=== PATIENT | male | born 1970 | race Caucasian/White ===

== ENCOUNTER 2016-11-22 15:30 | Observation (INO) | payer OTHER ==
--- NOTE | 2016-11-22 18:25 | PDOC ---
History of Present Illness - General Chief Complaint: Syncope/Near Syncope Stated Complaint: SYNCOPE History Source: Patient - History of Present Illness Initial Comments: 11/22/16 18:33 Patient is a 46 y.o. male with a PMH of Dieulafoy's lesion (s/p resection) and alcoholic hepatitis who presents to our facility today following a syncopal episode at the gym. Patient states his last memory is was pushing a football dummy with his personal fitness manager and he next recall being on the floor. Patient states his personal fitness manager broke his fall and patient denies any head trauma as well as any pre-syncopal diaphoresis, blurry vision, shortness of breath or chest pain prior to his syncopal episode. Past History - Past Medical History Allergies/Adverse Reactions: Allergies Allergy/AdvReac Type Severity Reaction Status Date / Time Penicillins Allergy Verified 11/22/16 15:41 Home Medications: Ambulatory Orders Nadolol [Corgard -] 20 mg PO DAILY #30 tablet 10/07/15 Pantoprazole Sodium [Protonix -] 40 mg PO DAILY #30 tablet.ec 10/07/15 Cardiac Disorders: Yes (AAA) Disorders: Yes (sludge) HTN: Yes - Immunization History Immunization Up to Date: Yes - Psycho/Social/Smoking Cessation Hx Anxiety: No Suicidal Ideation: No Smoking History: Never smoked Have you smoked in the past 12 months: No Number of Cigarettes Smoked Daily: 0 Cigars Per Day: 0 Information on smoking cessation initiated: No Hx Alcohol Use: No (past) Drug/Substance Use Hx: No (past) Substance Use Type: Alcohol *Physical Exam - Vital Signs Last Vital Signs Temp Pulse Resp BP Pulse Ox 98.1 F 76 20 98/55 98 11/22/16 15:43 11/22/16 15:43 11/22/16 15:43 11/22/16 15:43 11/22/16 15:43 ED Treatment Course - LABORATORY CBC & Chemistry Diagram: 11/22/16 18:00 11/22/16 18:00 Medical Decision Making - Medical Decision Making 11/22/16 18:37 Initial differential diagnosis includes isolated syncopal episode 2/2 to dehydration vs. arrhythmia with neurogenic causes less likely. EKG, CBC, BMP pending at time of signout to Dr. Henry.
[2016-11-22 18:52] LABS: MCH 21.5 pg (25.7-33.7); MCHC 31.4 g/dl (32.0-35.9); MEAN CELL VOLUME 68.5 fl (80-96); MEAN PLT VOLUME 9.1 fl (7.5-11.1); PLATELET COUNT 86 K/MM3 (134-434); RDW 18.3 % (11.9-15.9)
[2016-11-22 19:28] LABS: ANION GAP 9 (8-16); CALCIUM 8.7 mg/dL (8.5-10.1); CO2 24 mmol/L (21-32); CREATININE 0.7 mg/dL (0.7-1.3); GLUCOSE,RANDOM 108 mg/dL (74-106)
--- NOTE | 2016-11-22 19:35 | PDOC ---
History of Present Illness - General Chief Complaint: Syncope/Near Syncope Stated Complaint: SYNCOPY Time Seen by Provider: 11/22/16 18:26 Past History - Past Medical History Allergies/Adverse Reactions: Allergies Allergy/AdvReac Type Severity Reaction Status Date / Time Penicillins Allergy Verified 11/22/16 15:41 Home Medications: Ambulatory Orders Nadolol [Corgard -] 20 mg PO DAILY #30 tablet 10/07/15 Pantoprazole Sodium [Protonix -] 40 mg PO DAILY #30 tablet.ec 10/07/15 Cardiac Disorders: Yes (AAA) Disorders: Yes (sludge) HTN: Yes - Immunization History Immunization Up to Date: Yes - Psycho/Social/Smoking Cessation Hx Anxiety: No Suicidal Ideation: No Smoking History: Never smoked Have you smoked in the past 12 months: No Number of Cigarettes Smoked Daily: 0 Cigars Per Day: 0 Information on smoking cessation initiated: No Hx Alcohol Use: No (past) Drug/Substance Use Hx: No (past) Substance Use Type: Alcohol *Physical Exam - Vital Signs Last Vital Signs Temp Pulse Resp BP Pulse Ox 98.1 F 76 20 98/55 98 11/22/16 15:43 11/22/16 15:43 11/22/16 15:43 11/22/16 15:43 11/22/16 15:43 ED Treatment Course - LABORATORY CBC & Chemistry Diagram: 11/22/16 18:00 11/22/16 18:00 - ADDITIONAL ORDERS Additional order review: Laboratory Results 11/22/16 18:00 Sodium 139 Potassium 4.0 Chloride 106 Carbon Dioxide 24 Anion Gap 9 BUN 15 D Creatinine 0.7 Random Glucose 108 H D Calcium 8.7 11/22/16 18:00 RBC 4.36 D MCV 68.5 L MCHC 31.4 L RDW 18.3 H D MPV 9.1
--- NOTE | 2016-11-22 20:29 | PDOC ---
History of Present Illness - General Chief Complaint: Syncope/Near Syncope Stated Complaint: SYNCOPY Time Seen by Provider: 11/22/16 18:26 - History of Present Illness Initial Comments: Patient is a 46 y.o. male with a PMH of Dieulafoy's lesion (s/p resection) and alcoholic hepatitis who presents to our facility today following a syncopal episode at the gym. Patient states that he had a rigorous workout with his aed trainer during which he was pushing a tactical dummy long distances. He was able to complete his workout then began stratching on the floor during wic his traners was folding his legs and knees to his head while ht epatient was supine. The patien quickly got up off hte floor and immediately syncopized for approximately 5-10 seconds then awoke. Patient states his personal shopper broke his fall and patient denies any head trauma as well as any pre-syncopal diaphoresis, blurry vision, shortness of breath or chest pain prior to his syncopal episode. He had no head trauma, tongue or mouth trauma, bowel incontinence, bladder incontinence, or post ictal period. He has history of abdominal aortic aneurism per his chart but this is inaccurate per the patient and recent MRI read. He is followed by Dr. Staples for his liver pathology and sequelae, having just received an abdominal MRI last week that he states was fine. 11/22/16 20:29 Past History - Past Medical History Allergies/Adverse Reactions: Allergies Allergy/AdvReac Type Severity Reaction Status Date / Time Penicillins Allergy Verified 11/22/16 15:41 Home Medications: Ambulatory Orders Nadolol [Corgard -] 20 mg PO DAILY #30 tablet 10/07/15 Pantoprazole Sodium [Protonix -] 40 mg PO DAILY #30 tablet.ec 10/07/15 Cardiac Disorders: Yes (AAA) Disorders: Yes (sludge) HTN: Yes - Immunization History Immunization Up to Date: Yes - Psycho/Social/Smoking Cessation Hx Anxiety: No Suicidal Ideation: No Smoking History: Never smoked Have you smoked in the past 12 months: No Number of Cigarettes Smoked Daily: 0 Cigars Per Day: 0 Information on smoking cessation initiated: No Hx Alcohol Use: No (past) Drug/Substance Use Hx: No (past) Substance Use Type: Alcohol *Physical Exam - Vital Signs Last Vital Signs Temp Pulse Resp BP Pulse Ox 98.1 F 76 20 98/55 98 11/22/16 15:43 11/22/16 15:43 11/22/16 15:43 11/22/16 15:43 11/22/16 15:43 - Physical Exam General Appearance: Yes: Appropriately Dressed. No: Apparent Distress HEENT: positive: EOMI, JOSE F, Normal Voice Neck: positive: Trachea midline, Normal Thyroid. negative: Tender Respiratory/Chest: positive: Lungs Clear, Normal Breath Sounds. negative: Chest Tender, Respiratory Distress, Accessory Muscle Use Cardiovascular: positive: Regular Rhythm, Regular Rate, S1, S2, Edema (trace bilateral le edema). negative: JVD, Murmur Gastrointestinal/Abdominal: positive: Normal Bowel Sounds, Flat, Distended ( sligtly distended per his baseline). negative: Tender Musculoskeletal: positive: Normal Inspection Neurologic: positive: physical medicine physician II-XII NML intact, Fully Oriented, Alert, Normal Mood/ Affect, Motor Strength 08/09 ED Treatment Course - LABORATORY CBC & Chemistry Diagram: 11/22/16 18:00 11/22/16 18:00 - ADDITIONAL ORDERS Additional order review: Laboratory Results 11/22/16 18:00 Sodium 139 Potassium 4.0 Chloride 106 Carbon Dioxide 24 Anion Gap 9 BUN 15 D Creatinine 0.7 Random Glucose 108 H D Calcium 8.7 11/22/16 18:00 RBC 4.36 D MCV 68.5 L MCHC 31.4 L RDW 18.3 H D MPV 9.1 Medical Decision Making - Medical Decision Making 46 year old male with recent syncopal episode after supine stretching and standing all after a heavy workout. NO post ictal phase or head trauma to suggest high mechanism injury or seizure. This was most likely orthostatic hypotension but with history of AVMs, further workup was warranted. CBC significant for anemia (9.4)but this is per his baseline (mid 9s to mid 8s) and thrombocytopenia (86) but patient usually runs in 80s to low 100s. is KEG had a potential RSrR in V1 with some possibly depressed t waves n V3 but these were all apparent in his EKG on 09/2015. Furthermore, an echo on 09/2015 demonstrated no valvular abnormalities along with an EF of 60%. 11/22/16 21:12 11/22/16 23:[address] negative and patient feeling well. Spoke with Dr. Moncada @ 23:00 who suggested carotid Dopplers and further workup if suspicious. Will admit the patient for obs and further cardiac workup. 11/23/16 00:01 Spoke to medicine, put in carotid dopplers and admitted patient for further workup. Admitted under Dr. Landry. 11/23/16 00:04 *DC/Admit/Observation/Transfer Diagnosis at time of Disposition: Syncope - Discharge Dispostion Condition at time of disposition: Improved Admit: Yes - Referrals Referrals: Isa Raphael MD [Primary Care Provider] - - Attestations Physician Attestion: 11/23/16 00:05 I, Dr. Stephanie Henry, attest that this document has been prepared under my direction and personally reviewed by me in its entirety. I further attest, that it accurately reflects all work, treatment, procedures and medical decision -making performed by me.
[2016-11-22 20:38] LABS: ALBUMIN 3.4 g/dl (3.4-5.0); BILIRUBIN,DIRECT 0.5 mg/dL (0.0-0.2); BILIRUBIN,TOTAL 2.5 mg/dL (0.2-1.0); TOT PROT 6.8 g/dl (6.4-8.2)
[2016-11-22 20:39] LABS: TROPONIN I 0.02 ng/ml (0.00-0.05)
[2016-11-22 20:58] LABS: URINE APPEARANCE CLEAR; URINE BILIRUBIN NEGATIVE (NEGATIVE); URINE BLOOD NEGATIVE (NEGATIVE); URINE COLOR LTYELLOW; URINE GLUCOSE (UA) NEGATIVE (NEGATIVE); URINE KETONE NEGATIVE (NEGATIVE); URINE LEUK ESTERASE NEGATIVE (NEGATIVE); URINE NITRITE NEGATIVE (NEGATIVE); URINE UROBILINOGEN NEGATIVE mg/dL (0.2-1.0)
[2016-11-22 20:59] LABS: URINE PROTEIN 1+ (NEGATIVE)
[2016-11-22 22:22] LABS: GRANULAR CASTS 1 /lpf; URINE MUCUS RARE; URINE RBC <1 /hpf (0-3); URINE WBC <1 /hpf (3-5)
[2016-11-22 22:43] LABS: PLATELET ESTIMATE MOD DECREASED (NORMAL)
[2016-11-22 22:44] LABS: HYPOCHROMIA 2+; MICROCYTOSIS 1+
--- NOTE | 2016-11-22 23:55 | PDOC ---
Attending Attestation - Resident Resident Name: Stephanie Henry - HPI HPI: 11/22/16 23:52 Pt had a syncopal episode in the gym during a workout. Witnessed by his applications trainer. Pt has never passed out before. Hx of alcoholism. - Physicial Exam PE: 11/22/16 23:55 Agree with resident exam - Medical Decision Making 11/22/16 23:55 Admit telemetry observation
[2016-11-23 02:25] VITALS: BMI 35.4
--- NOTE | 2016-11-23 04:14 | HP ---
CHIEF COMPLAINT: passed out at gym PCP:Isa Raphael MD HISTORY OF PRESENT ILLNESS: 46 yo male with a PMHx of GI bleed and alcoholic hepatitis who presented to ED following a syncopal episode at the gym. He states that today he was working out with his horse trainer and after a rigerous excercise of pushing an sled he felt light headed and proceeded to sit on a mat while his horse trainer stretching his legs and bending his knees. He then proceeded to stand up and next thing he remembers is waking up on floor. He was not confused. No loss of bowel or bladder function. He does recall some feeling of light headedness and palpitations just prior to waking up on floor. His horse trainer was able to stop him from hitting his head. Patient denies CP, CARRENO, SOB, abd. pain, N/V. ER course was notable for: (1)EKG showed NSR no significant st or t wave abnormalities (2)Head CT was negative for acute pathology (3)Carotid doppler showed no significant stenosis Recent Travel: Denies PAST MEDICAL HISTORY:GI bleed and alcoholic hepatitis PAST SURGICAL HISTORY: Social History: Smoking:denies Alcohol:history of abuse. last drink over a year ago Drugs: denies Family History: Allergies Penicillins Allergy (Verified 11/22/16 15:41) HOME MEDICATIONS: Home Medications Medication Instructions Recorded Nadolol [Corgard -] 20 mg PO DAILY #30 tablet 10/07/15 Pantoprazole Sodium [Protonix -] 40 mg PO DAILY #30 tablet.ec 10/07/15 Escitalopram Oxalate [Lexapro -] 10 mg PO DAILY 11/23/16 REVIEW OF SYSTEMS CONSTITUTIONAL: Absent: fever, chills, diaphoresis, generalized weakness, malaise, loss of appetite, weight change HEENT: Absent: rhinorrhea, nasal congestion, throat pain, throat swelling, difficulty swallowing, mouth swelling, ear pain, eye pain, visual changes CARDIOVASCULAR: syncope, palpitations Absent: chest pain, , irregular heart rate, lightheadedness, peripheral edema RESPIRATORY: Absent: cough, shortness of breath, dyspnea with exertion, orthopnea, wheezing, stridor, hemoptysis GASTROINTESTINAL: Absent: abdominal pain, abdominal distension, nausea, vomiting, diarrhea, constipation, melena, hematochezia GENITOURINARY: Absent: dysuria, frequency, urgency, hesitancy, hematuria, flank pain, genital pain MUSCULOSKELETAL: Absent: myalgia, arthralgia, joint swelling, back pain, neck pain SKIN: Absent: rash, itching, pallor HEMATOLOGIC/IMMUNOLOGIC: Absent: easy bleeding, easy bruising, lymphadenopathy, frequent infections ENDOCRINE: Absent: unexplained weight gain, unexplained weight loss, heat intolerance, cold intolerance NEUROLOGIC: Absent: headache, focal weakness or paresthesias, dizziness, unsteady gait, seizure, mental status changes, bladder or bowel incontinence PSYCHIATRIC: Absent: anxiety, depression, suicidal or homicidal ideation, hallucinations. PHYSICAL EXAMINATION Vital Signs - 24 hr 11/23/16 11/23/16 01:08 01:30 Temperature 98.0 F 97.6 F Pulse Rate 55 L Pulse Rate [ 68 Left Radial] Respiratory 19 20 Rate Blood Pressure 122/62 Blood Pressure 110/70 [Left Arm] O2 Sat by Pulse 98 99 Oximetry (%) GENERAL: AAAOx3, NAD HEAD: NC/AT EYES: PERRLA, EOMI, sclera anicteric, conjunctiva clear. No lid lag. EARS, NOSE, THROAT: Moist mucous membranes. NECK: supple, no jvd LUNGS: CTAB. No wheezes, and no crackles. No accessory muscle use. HEART: RRR, normal S1 and S2 without murmur, rub or gallop. ABDOMEN: Soft, NT/ND, normoactive bowel sounds, no guarding, no rebound, no masses. No hepatomegaly or splenomegaly. MUSCULOSKELETAL: Normal range of motion at all joints. No bony deformities or tenderness. No CVA tenderness. UPPER EXTREMITIES: 2+ pulses, warm, well-perfused. No cyanosis. No clubbing. No peripheral edema. LOWER EXTREMITIES: 2+ pulses, warm, well-perfused. No calf tenderness. trace edema bilaterally NEUROLOGICAL: Cranial nerves II-XII intact. Normal speech. gait not observed. PSYCHIATRIC: Cooperative. Good eye contact. Appropriate mood and affect. SKIN: Warm, dry, normal turgor, no rashes or lesions noted, normal capillary refill. Laboratory Results - last 24 hr 11/23/16 02:30 Troponin I 0.03 D ASSESSMENT/PLAN: 46 yo male with a PMHx of GI bleed and alcoholic hepatitis placed on observation to telemetry for syncope work up. Problem List - Problem (1) Syncope Assessment/Plan: * Placed on obs tele * Most likely orthostatic * Cardio consult pending * Carotid doppler with no signifcant stenosis * EKG NSR * Echo pending. * trend trops * orthostatic BP's (2) Alcoholic hepatitis Assessment/Plan: * Continue home meds * Nadolol 20 mg PO DAILY * Pantoprazole Sodium 40 mg PO DAILY Visit type - Emergency Visit Emergency Visit: Yes ED Registration Date: 11/23/16 Care time: The patient presented to the Emergency Department on the above date and was hospitalized for further evaluation of their emergent condition. - New Patient This patient is new to me today: Yes Date on this admission: 11/23/16 - Critical Care Critical Care patient: No
--- NOTE | 2016-11-23 06:08 | PN ---
Teaching Attending Note Name of Resident: Solomon Sheppard ATTENDING PHYSICIAN STATEMENT I saw and evaluated the patient. I reviewed the resident's note and discussed the case with the resident. I agree with the resident's findings and plan as documented. SUBJECTIVE: 46 yo male admitted after apparent syncopal episode during his workout today. OBJECTIVE: - Vital Sign Temp: 97.6F BP: 122/62 HR: 50s RR: 20 spO2: 99% on RA - Physical Examination General: Alert, NAD HEENT: Atraumatic, no oral lesions Neck: No jvd CV: Sinus bradycardia, S1 and S2 Pulm: CTA anteriorly Ext: Nonedematous Lymph: No cervical or supraclavicular lymphadenopathy - Imaging CT Brain and Carotid U/S reviewed Echo 09/2015 reviewed ( wnl ) - Labs CMP unremarkable aside from Bili 2.5 ( Direct 0.5 ) Pancytopenia c/w baseline Troponin negative x 2 UA 1+ protein ASSESSMENT Syncope - history suggestive of orthostatic etiology, however, unclear if associated with exertion EtOH Cirrhosis Chronic Pancytopenia Mild Hyperbilirubinemia Asymptomatic Bradycardia PLAN: Admit for cardiac telemetry and exercise stress test in AM. Hold outpatient BB F/U Echocardiogram and exercise stress results ; F/U Cardiology recs Thiamine, Folate, MVI DISPOSITION: Anticipate discharge in 24-48h pending results of above investigations and Cardiology recommendations.
--- NOTE | 2016-11-23 08:02 | CONSULT ---
Consult - text type - Consultation Consultation Note: Cardiology 46 y.o. male with a PMH of Dieulafoy's lesion (s/p resection) and alcoholic hepatitis who presents to our facility today following a syncopal episode at the gym. No pre or post symptoms. Denies any cardiac symptoms, with reasonable exercise capacity. social: ex ETOH allergey: NKDA FH NA Op: PMH: etoh cirrhosis, liver transplant evaluation PE: vitals stable normal cardio-pulmonary exam abdomen soft no leg edema Impression: stable from cardiac standpoint EKG and troponins unremarkable telemetry normal most likely post-exertional syncope, without cardiac etology Rec: Discharge Follow-up my office; patient agreeable
[2016-11-23 08:32] LABS: MAGNESIUM 1.8 mg/dL (1.8-2.4); PHOSPHOROUS 3.9 mg/dL (2.5-4.9)
[2016-11-23] MEDS ORDERED: NADOLOL 20 MG TABLET (FP) PO SCH (10:00)
[2016-11-23] MEDS ORDERED: ESCITALOPRAM OXALATE 10 MG TABLET (FP) PO SCH (10:00)
[2016-11-23] MEDS ORDERED: PANTOPRAZOLE 40 MG TABLET (FP) PO SCH (10:00)
[2016-11-23 10:07] VITALS: BP 117/68; PULSE 65; TEMP 97.9
--- NOTE | 2016-11-23 12:39 | PN ---
Physical Exam: SUBJECTIVE: Patient seen and examined OBJECTIVE: Vital Signs Temperature 97.9 F 11/23/16 10:00 Pulse Rate 65 11/23/16 10:00 Respiratory Rate 20 11/23/16 10:08 Blood Pressure 117/68 11/23/16 10:00 O2 Sat by Pulse Oximetry (%) 99 11/23/16 10:08 GENERAL: The patient is awake, alert, and fully oriented, in no acute distress. HEAD: Normal with no signs of trauma. EYES: PERRL, extraocular movements intact, sclera anicteric, conjunctiva clear. No ptosis. ENT: Ears normal, nares patent, oropharynx clear without exudates, moist mucous membranes. NECK: Trachea midline, full range of motion, supple. LUNGS: Breath sounds equal, clear to auscultation bilaterally, no wheezes, no crackles, no aqccessory muscle use. HEART: Regular rate and rhythm, S1, S2 without murmur, rub or gallop. ABDOMEN: Soft, nontender, nondistended, normoactive bowel sounds, no rebound, no hepatosplenomegaly, no masses. EXTREMITIES: 2+ pulses, warm, well-perfused, no edema. NEUROLOGICAL: Cranial nerves II through XII grossly intact. Normal speech, gait not observed. PSYCH: Normal mood, normal affect. SKIN: Warm, dry, normal turgor, no rashes or lesions noted Laboratory Results - last 24 hr 11/23/16 11/23/16 02:30 06:05 Phosphorus 3.9 Magnesium 1.8 Troponin I 0.03 D CBCD WBC 3.0 K/mm3 (4.0-10.0) L D 11/22/16 18:00 RBC 4.36 M/mm3 (4.00-5.60) D 11/22/16 18:00 Hgb 9.4 GM/dL (11.7-16.9) L 11/22/16 18:00 Hct 29.8 % (35.4-49) L 11/22/16 18:00 MCV 68.5 fl (80-96) L 11/22/16 18:00 MCHC 31.4 g/dl (32.0-35.9) L 11/22/16 18:00 RDW 18.3 % (11.9-15.9) H D 11/22/16 18:00 Plt Count 86 K/MM3 (134-434) L D 11/22/16 18:00 MPV 9.1 fl (7.5-11.1) 11/22/16 18:00 CMP Sodium 139 mmol/L (136-145) 11/22/16 18:00 Potassium 4.0 mmol/L (3.5-5.1) 11/22/16 18:00 Chloride 106 mmol/L (98-107) 11/22/16 18:00 Carbon Dioxide 24 mmol/L (21-32) 11/22/16 18:00 Anion Gap 9 (8-16) 11/22/16 18:00 BUN 15 mg/dL (7-18) D 11/22/16 18:00 Creatinine 0.7 mg/dL (0.7-1.3) 11/22/16 18:00 Random Glucose 108 mg/dL (74-106) H D 11/22/16 18:00 Calcium 8.7 mg/dL (8.5-10.1) 11/22/16 18:00 Total Bilirubin 2.5 mg/dL (0.2-1.0) H D 11/22/16 18:00 AST 32 U/L (15-37) D 11/22/16 18:00 ALT 22 U/L (12-78) 11/22/16 18:00 Alkaline Phosphatase 82 U/L (45-117) D 11/22/16 18:00 Total Protein 6.8 g/dl (6.4-8.2) 11/22/16 18:00 Albumin 3.4 g/dl (3.4-5.0) 11/22/16 18:00 CARDIAC ENZYMES Creatine Kinase 130 IU/L (39-308) 11/22/16 18:00 Troponin I 0.03 ng/ml (0.00-0.05) D 11/23/16 02:30 Active Medications Generic Name Dose Route Start Last Admin Trade Name Rnee PRN Reason Stop Dose Admin Escitalopram Oxalate 10 mg 11/23/16 10:00 11/23/16 09:23 Lexapro - PO 10 mg DAILY ELICEO Administration Nadolol 20 mg 11/23/16 10:00 11/23/16 09:23 Corgard - PO 20 mg DAILY ELICEO Administration Pantoprazole Sodium 40 mg 11/23/16 10:00 11/23/16 09:23 Protonix - PO 40 mg DAILY ELICEO Administration Home Medications Medication Instructions Recorded Nadolol [Corgard -] 20 mg PO DAILY #30 tablet 10/07/15 Pantoprazole Sodium [Protonix -] 40 mg PO DAILY #30 tablet.ec 10/07/15 Escitalopram Oxalate [Lexapro -] 10 mg PO DAILY 11/23/16 Carotid duplex: No significant stenosis reported Head Ct: negative ASSESSMENT/PLAN: Syncope - history suggestive of orthostatic etiology, however, unclear if associated with exertion EtOH Cirrhosis Chronic Pancytopenia Mild Hyperbilirubinemia Asymptomatic Bradycardia PLAN: Admit for cardiac telemetry and exercise stress test in AM. Hold outpatient BB F/U Echocardiogram and exercise stress results ; F/U Cardiology recs Thiamine, Folate, MVI
--- NOTE | 2016-11-23 13:11 | CON.NEURO ---
Consult - History of Present Illness History of Present Illness: 46 yo male with a PMHx of GI bleed and alcoholic hepatitis who presented to ED following a syncopal episode at the gym. He states that today he was working out with his small engine trainer and after a rigerous excercise of pushing an sled he felt light headed and proceeded to sit on a mat while his small engine trainer stretching his legs and bending his knees. He then proceeded to stand up and next thing he remembers is waking up on floor. He was not confused. No loss of bowel or bladder function. He does recall some feeling of light headedness and palpitations just prior to waking up on floor. His small engine trainer was able to stop him from hitting his head. Patient denies CP, CARRENO, SOB, abd. pain, N/V. no HX of seizure, stroke, no prior events.Last ETOH > one yr ago. back to baseline. CTHD (-), dopplers (-) - Alcohol/Substance Use Hx Alcohol Use: No (past) - Smoking History Smoking history: Never smoked Have you smoked in the past 12 months: No Aproximately how many cigarettes per day: 0 Home Medications - Allergies Allergies/Adverse Reactions: Allergies Allergy/AdvReac Type Severity Reaction Status Date / Time Penicillins Allergy Verified 11/22/16 15:41 - Home Medications Home Medications: Ambulatory Orders Nadolol [Corgard -] 20 mg PO DAILY #30 tablet 10/07/15 Pantoprazole Sodium [Protonix -] 40 mg PO DAILY #30 tablet.ec 10/07/15 Escitalopram Oxalate [Lexapro -] 10 mg PO DAILY 11/23/16 Physical Exam-Neuro Vital Signs: Vital Signs Temperature 97.9 F 11/23/16 10:00 Pulse Rate 65 11/23/16 10:00 Respiratory Rate 20 11/23/16 10:08 Blood Pressure 117/68 11/23/16 10:00 O2 Sat by Pulse Oximetry (%) 99 11/23/16 10:08 Constitutional: Yes: Well Nourished, No Distress Neck: Yes: WNL Labs: Troponin, BNP 11/22/16 11/23/16 18:00 02:30 Troponin I 0.02 D 0.03 D 11/22/16 18:00 11/22/16 18:00 - Neuro Exam Level Of Consciousness: Yes: Alert, Oriented to Person (EOMI, pupils symmetric, no facial, motor 5/5, plantars down) Imaging - Results Cat Scan: Report Reviewed, Image Reviewed Problem List - Problems (1) Alcoholic hepatitis Code(s): K70.10 - ALCOHOLIC HEPATITIS WITHOUT ASCITES Qualifiers: Ascites presence: with ascites Qualified Code(s): K70.11 - Alcoholic hepatitis with ascites (2) Syncope Code(s): R55 - SYNCOPE AND COLLAPSE Qualifiers: Syncope type: unspecified Qualified Code(s): R55 - Syncope and collapse Assessment/Plan Syncope post excersise, ? compunded by dehydration , anemia no signs of seizure or stroke neuro cleared for Dc Dr Moncada
--- NOTE | 2016-11-23 14:00 | DS ---
Physical Exam: SUBJECTIVE: Patient seen and examined Patient is feeling better. no fever or chills, no shortness of breath. OBJECTIVE: Vital Signs Temperature 97.9 F 11/23/16 10:00 Pulse Rate 65 11/23/16 10:00 Respiratory Rate 20 11/23/16 10:08 Blood Pressure 117/68 11/23/16 10:00 O2 Sat by Pulse Oximetry (%) 99 11/23/16 10:08 GENERAL: The patient is awake, alert, and fully oriented, in no acute distress. HEAD: Normal with no signs of trauma. EYES: PERRL, extraocular movements intact, sclera anicteric, conjunctiva clear. ENT: Ears normal, oropharynx clear without exudates, moist mucous membranes. NECK: Trachea midline, full range of motion, supple. LUNGS: Breath sounds equal, clear to auscultation bilaterally, no wheezes, no crackles, no accessory muscle use. HEART: Regular rate and rhythm, S1, S2 without murmur, rub or gallop. ABDOMEN: Soft, nontender, nondistended, normoactive bowel sounds, no guarding, no rebound. EXTREMITIES: 2+ pulses, warm, well-perfused, no edema. NEUROLOGICAL: Cranial nerves II through XII grossly intact. Normal speech, gait not observed. PSYCH: Normal mood, normal affect. SKIN: Warm, dry, normal turgor, no rashes or lesions noted. LABS Laboratory Results - last 24 hr 11/23/16 11/23/16 02:30 06:05 Phosphorus 3.9 Magnesium 1.8 Troponin I 0.03 D CBCD WBC 3.0 K/mm3 (4.0-10.0) L D 11/22/16 18:00 RBC 4.36 M/mm3 (4.00-5.60) D 11/22/16 18:00 Hgb 9.4 GM/dL (11.7-16.9) L 11/22/16 18:00 Hct 29.8 % (35.4-49) L 11/22/16 18:00 MCV 68.5 fl (80-96) L 11/22/16 18:00 MCHC 31.4 g/dl (32.0-35.9) L 11/22/16 18:00 RDW 18.3 % (11.9-15.9) H D 11/22/16 18:00 Plt Count 86 K/MM3 (134-434) L D 11/22/16 18:00 MPV 9.1 fl (7.5-11.1) 11/22/16 18:00 CMP Sodium 139 mmol/L (136-145) 11/22/16 18:00 Potassium 4.0 mmol/L (3.5-5.1) 11/22/16 18:00 Chloride 106 mmol/L (98-107) 11/22/16 18:00 Carbon Dioxide 24 mmol/L (21-32) 11/22/16 18:00 Anion Gap 9 (8-16) 11/22/16 18:00 BUN 15 mg/dL (7-18) D 11/22/16 18:00 Creatinine 0.7 mg/dL (0.7-1.3) 11/22/16 18:00 Random Glucose 108 mg/dL (74-106) H D 11/22/16 18:00 Calcium 8.7 mg/dL (8.5-10.1) 11/22/16 18:00 Total Bilirubin 2.5 mg/dL (0.2-1.0) H D 11/22/16 18:00 AST 32 U/L (15-37) D 11/22/16 18:00 ALT 22 U/L (12-78) 11/22/16 18:00 Alkaline Phosphatase 82 U/L (45-117) D 11/22/16 18:00 Total Protein 6.8 g/dl (6.4-8.2) 11/22/16 18:00 Albumin 3.4 g/dl (3.4-5.0) 11/22/16 18:00 CARDIAC ENZYMES Creatine Kinase 130 IU/L (39-308) 11/22/16 18:00 Troponin I 0.03 ng/ml (0.00-0.05) D 11/23/16 02:30 Current Medications Generic Name Dose Route Start Last Admin Trade Name Freq PRN Reason Stop Dose Admin Escitalopram Oxalate 10 mg 11/23/16 10:00 11/23/16 09:23 Lexapro - PO 10 mg DAILY ELICEO Administration Nadolol 20 mg 11/23/16 10:00 11/23/16 09:23 Corgard - PO 20 mg DAILY ELICEO Administration Pantoprazole Sodium 40 mg 11/23/16 10:00 11/23/16 09:23 Protonix - PO 40 mg DAILY ELICEO Administration Home Medications Medication Instructions Recorded Nadolol [Corgard -] 20 mg PO DAILY #30 tablet 10/07/15 Pantoprazole Sodium [Protonix -] 40 mg PO DAILY #30 tablet.ec 10/07/15 Escitalopram Oxalate [Lexapro -] 10 mg PO DAILY 11/23/16 Carotid duplex: No significant stenosis reported Head Ct: negative HOSPITAL COURSE: Date of Admission:11/23/16 Date of Discharge: 11/23/16 ASSESSMENT/PLAN: Patient is a 46yo male presented to ED. post syncope. # Syncope - history suggestive of orthostatic etiology, however, unclear if associated with exertion, as per neuro patient is clear for discharge, as per cardio can have stress test and further work up by 's office, who also cleared him for discharge. Patient stated that he was told that his pulse was low, doesn't recall how low. Also TSH,FT4 w/u as an outpatient, stress test, echo as an outpatient. # EtOH Cirrhosis patient stopped drinking, he is on the transplant list at this and will follow with [facility]. 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 #Mild Hyperbilirubinemia follow with GI 40 minutes Minutes to complete discharge: 40 Discharge Summary Reason For Visit: SYNCOPE Current Active Problems Alcoholic hepatitis (Acute) Syncope (Acute) Condition: Improved - Instructions Referrals: Isa Raphael MD [Primary Care Provider] - - Home Medications Comprehensive Discharge Medication List: Ambulatory Orders Nadolol [Corgard -] 20 mg PO DAILY #30 tablet 10/07/15 Pantoprazole Sodium [Protonix -] 40 mg PO DAILY #30 tablet.ec 10/07/15 Escitalopram Oxalate [Lexapro -] 10 mg PO DAILY 11/23/16 This patient is new to me today: Yes Date on this admission: 11/23/16 Emergency Visit: Yes ED Registration Date: 11/23/16 Care time: The patient presented to the Emergency Department on the above date and was hospitalized for further evaluation of their emergent condition. Critical Care patient: No - Discharge Referral Referred to [facility] Med P.C.: No
--- NOTE | 2016-11-23 18:41 | EKG ---
Test Reason : Blood Pressure : / mmHG Vent. Rate : 076 BPM Atrial Rate : 076 BPM P-R Int : 150 ms QRS Dur : 088 ms QT Int : 404 ms P-R-T Axes : 055 064 049 degrees QTc Int : 454 ms NORMAL SINUS RHYTHM NONSPECIFIC ST ABNORMALITY ABNORMAL ECG WHEN COMPARED WITH ECG OF 21-SEP-2015 10:28, ST NOW DEPRESSED IN ANTERIOR LEADS NONSPECIFIC T WAVE ABNORMALITY NOW EVIDENT IN ANTERIOR LEADS Confirmed by DOUGLAS GIL MD ([id number]) on 11/23/2016 6:40:56 PM Referred By: Confirmed By:DOUGLAS GIL MD
== END 2016-11-23 14:37 | disposition home or self-care (01) ==
LOC: JER 15:30 → JERBED 11-23 00:06 → UNDOADMOB 11-23 00:36 → JERBED 11-23 00:36 → J4W 11-23 02:05
PROVIDERS: ADMIT Internal Medicine; ATTEND Internal Medicine
DX: R55 Syncope and collapse (principal); K70.10 Alcoholic hepatitis without ascites; Z88.0 Allergy status to penicillin; I10 Essential (primary) hypertension; Z86.79 Personal history of other diseases of the circulatory system
CPT/HCPCS: 36415; 70450-TC; 71010-TC; 80048; 80076; 81003; 81015; 82272; 83735; 84100; 84484; 85027; 93005; 93010; 93880-TC; 99284-25; G0378

== ENCOUNTER 2018-09-24 11:53 | Emergency (ER) | payer SELFPAY ==
[2018-09-24 12:40] VITALS: BP 129/80; PULSE 98; TEMP 98.4; BMI 32.3
--- NOTE | 2018-09-24 13:56 | PDOC ---
*Physical Exam - Vital Signs Last Vital Signs Temp Pulse Resp BP Pulse Ox 98.4 F 98 H 18 129/80 97 09/24/18 12:36 09/24/18 12:36 09/24/18 12:36 09/24/18 12:36 09/24/18 12:36 ED Treatment Course - LABORATORY CBC & Chemistry Diagram: 09/24/18 15:29 09/24/18 15:29 - ADDITIONAL ORDERS Additional order review: Laboratory Results 09/24/18 13:33 Stool Occult Blood Positive Medical Decision Making - Medical Decision Making 09/24/18 13:56 Pt seen by Midlevel Provider under my direct supervision Ancillary studies reviewed I agree with plan as outlined by Midlevel Provider 09/25/18 09:13 *DC/Admit/Observation/Transfer Diagnosis at time of Disposition: Black stool - Discharge Dispostion Disposition: HOME Condition at time of disposition: Good - Prescriptions Prescriptions: Pantoprazole Sodium [Protonix] 40 mg PO DAILY #30 tablet.dr - Referrals Referrals: Isa Raphael MD [Primary Care Provider] - - Patient Instructions Printed Discharge Instructions: Fecal Occult Blood Test Additional Instructions: Please continue to take protonix as prescribed. 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 In regards to the cough you may take Robitussin 3 times a day as recommended - Post Discharge Activity
--- NOTE | 2018-09-24 14:53 | PDOC ---
History of Present Illness - General Chief Complaint: Lightheaded Stated Complaint: BLACK DIARRHEA Time Seen by Provider: 09/24/18 13:39 History Source: Patient Exam Limitations: No Limitations - History of Present Illness Initial Comments: 09/24/18 14:58 48 y/o female presents to the ED for evaluation of black stool upon defecation last evening. Pt denies abdominal pain, weakness, hemorrhoids, headache, fever, constipation, or recent illness. Pt with hx of PUD secondary etoh abuse. Timing/Duration: intermittent Severity: mild Associated Symptoms: reports: denies symptoms Past History - Travel Traveled outside of the country in the last 30 days: No Close contact w/someone who was outside of country & ill: No - Past Medical History Allergies/Adverse Reactions: Allergies Allergy/AdvReac Type Severity Reaction Status Date / Time Penicillins Allergy Verified 09/24/18 12:40 Home Medications: Ambulatory Orders Nadolol [Corgard -] 20 mg PO DAILY #30 tablet 10/07/15 Pantoprazole Sodium [Protonix -] 40 mg PO DAILY #30 tablet.ec 10/07/15 Escitalopram Oxalate [Lexapro -] 10 mg PO DAILY 11/23/16 Pantoprazole Sodium [Protonix] 40 mg PO DAILY #30 tablet. 09/24/18 Cardiac Disorders: Yes (AAA) Disorders: Yes (sludge) HTN: Yes - Immunization History Immunization Up to Date: Yes - Suicide/Smoking/Psychosocial Hx Smoking History: Never smoked Have you smoked in the past 12 months: No Number of Cigarettes Smoked Daily: 0 Cigars Per Day: 0 Information on smoking cessation initiated: No Hx Alcohol Use: No Drug/Substance Use Hx: No Substance Use Type: Alcohol Patient Lives Alone: No Lives with/in: parents Review of Systems - Review of Systems Able to Perform ROS?: Yes Constitutional: No: Symptoms Reported HEENTM: No: Symptoms Reported Respiratory: No: Symptoms reported Cardiac (ROS): No: Symptoms Reported ABD/GI: Yes: Other (black stool) Musculoskeletal: No: Symptoms Reported Integumentary: No: Symptoms Reported Neurological: No: Symptoms reported *Physical Exam - Vital Signs Last Vital Signs Temp Pulse Resp BP Pulse Ox 98.4 F 98 H 18 129/80 97 09/24/18 12:36 09/24/18 12:36 09/24/18 12:36 09/24/18 12:36 09/24/18 12:36 - Physical Exam General Appearance: Yes: Nourished, Appropriately Dressed. No: Apparent Distress HEENT: negative: Pale Conjunctivae Neck: positive: Supple Respiratory/Chest: positive: Lungs Clear, Normal Breath Sounds. negative: Respiratory Distress, Accessory Muscle Use Cardiovascular: positive: Regular Rhythm, Regular Rate. negative: Murmur Gastrointestinal/Abdominal: positive: Normal Bowel Sounds, Soft. negative: Distended, Tenderness Musculoskeletal: negative: CVA Tenderness Extremity: negative: Pedal Edema Integumentary: positive: Normal Color, Warm, Moist Neurologic: positive: Motor Strength 5/5 (ambulatory) ED Treatment Course - LABORATORY CBC & Chemistry Diagram: 09/24/18 15:29 09/24/18 15:29 - ADDITIONAL ORDERS Additional order review: Laboratory Results 09/24/18 13:33 Stool Occult Blood Positive Medical Decision Making - Medical Decision Making 09/24/18 14:54 CC:black stool x 1, no abd pain, hx etoh abuse, hx PUD Exam: no palpable hemorrhoids, no BRB in rectal vault, no abd tenderness PlaN; cbc, comp, stool for occult blood 09/24/18 16:17 Laboratory Tests 09/24/18 09/24/18 09/24/18 13:33 15:29 15:29 WBC 4.9 Hgb 13.0 Hct 40.0 D Plt Count 79 L Absolute Neuts (auto) 3.6 Sodium 135 L Potassium 3.9 Chloride 102 Carbon Dioxide 27 Anion Gap 6 L BUN 6.3 L Calcium 8.4 L Total Bilirubin 6.2 H AST 106 H Alkaline Phosphatase 172 H Albumin 3.2 L Stool Occult Blood Positive *DC/Admit/Observation/Transfer Diagnosis at time of Disposition: Black stool - Discharge Dispostion Disposition: HOME Condition at time of disposition: Good - Referrals Referrals: Isa Raphael MD [Primary Care Provider] - - Patient Instructions Printed Discharge Instructions: Fecal Occult Blood Test Additional Instructions: Please continue to take protonix as prescribed. 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 In regards to the cough you may take Robitussin 3 times a day as recommended - Post Discharge Activity
[2018-09-24 15:38] LABS: BASO % 1.2 % (0-2.0); EOS % 0.3 % (0-4.5); MCH 27.7 pg (25.7-33.7); MCHC 32.6 g/dl (32.0-35.9); MEAN CELL VOLUME 84.9 fl (80-96); MEAN PLT VOLUME 9.4 fl (7.5-11.1); MONO % 10.2 % (3.8-10.2); NEUT % 73.3 % (42.8-82.8); PLATELET COUNT 79 K/MM3 (134-434); RBC 4.71 M/mm3 (4.00-5.60); RDW 19.7 % (11.9-15.9); WHITE BLOOD COUNT 4.9 K/mm3 (4.0-10.0)
[2018-09-24 16:04] LABS: ALBUMIN 3.2 g/dl (3.4-5.0); BILIRUBIN,TOTAL 6.2 mg/dL (0.2-1); BLOOD UREA NITROGEN 6.3 mg/dL (7-18); CALCIUM 8.4 mg/dL (8.5-10.1); CREATININE 0.7 mg/dL (0.55-1.3); POTASSIUM 3.9 mmol/L (3.5-5.1)
== END 2018-09-24 16:35 | disposition home or self-care (01) ==
LOC: JER 11:53
DX: R19.5 Other fecal abnormalities (principal); Z87.11 Personal history of peptic ulcer disease
CPT/HCPCS: 36415; 80053; 82272; 85025; 99281-25

== ENCOUNTER 2018-10-30 11:21 | Inpatient (IN) | payer SELFPAY ==
[2018-10-30 11:29] VITALS: BMI 29.0
[2018-10-30] MEDS ORDERED: chlordiazePOXIDE HCL 25 MG CAPSULE PO ONE (12:32)
[2018-10-30] MEDS ORDERED: chlordiazePOXIDE HCL 25 MG CAPSULE ONE (12:37)
[2018-10-30 13:00] LABS: BASO % 0.8 % (0-2.0); EOS % 0.7 % (0-4.5); HEMATOCRIT 35.5 % (35.4-49); HEMOGLOBIN 11.9 GM/dL (11.7-16.9); LYMPH % 18.8 % (8-40); MCH 29.4 pg (25.7-33.7); MCHC 33.5 g/dl (32.0-35.9); MEAN CELL VOLUME 87.6 fl (80-96); MONO % 8.3 % (3.8-10.2); NEUT % 71.4 % (42.8-82.8); PLATELET COUNT 53 K/MM3 (134-434); RBC 4.05 M/mm3 (4.00-5.60); RDW 18.7 % (11.9-15.9); WHITE BLOOD COUNT 3.1 K/mm3 (4.0-10.0)
[2018-10-30 13:30] LABS: ALBUMIN 3.1 g/dl (3.4-5.0); BILIRUBIN,TOTAL 7.6 mg/dL (0.2-1); CALCIUM 8.6 mg/dL (8.5-10.1); CREATININE 0.8 mg/dL (0.55-1.3); POTASSIUM 3.9 mmol/L (3.5-5.1); TOT PROT 7.5 g/dl (6.4-8.2)
[2018-10-30] MEDS ORDERED: PANTOPRAZOLE SODIUM 40 MG VIAL IVPUSH ONE (13:59)
[2018-10-30] MEDS ORDERED: PANTOPRAZOLE SODIUM 40 MG VIAL ONE (14:47)
--- NOTE | 2018-10-30 14:47 | PDOC ---
Documentation entered by Madelyn Crum SCRIBE, acting as scribe for Josephine Evans MD. Josephine Evans MD: This documentation has been prepared by the Skyla sheppard Mackenzie, SCRIBE, under my direction and personally reviewed by me in its entirety. I confirm that the documentation accurately reflects all work , treatment, procedures, and medical decision making performed by me. History of Present Illness - General Chief Complaint: Diarrhea Stated Complaint: NAUSEA/DIARRHEA Time Seen by Provider: 10/30/18 12:19 History Source: Patient Exam Limitations: Other (Poor historian) - History of Present Illness Initial Comments: The patient is a 48 year old male, with a significant PMH of GI bleed (2016), EtOH dependence, and alcoholic hepatitis who presents to the emergency department with 4 days of black diarrhea, nausea, and vomiting. Patient reports going out drinking with friends 5 days ago and the following day presented with multiple episodes of black diarrhea and vomiting. Patient is unable to keep food down, and states his last episode of vomiting/dry heaving was yesterday. Patient reports he quit drinking after going out 5 days ago and notes symptoms of chills. Patient notes being hospitalized for a similar episode 3 weeks ago. The patient denies chest pain, shortness of breath, headache and dizziness. Denies fever. Denies dysuria, frequency, urgency and hematuria. Allergies: Penicillins Social history: Was sober for one year but then started drinking again one year ago and now is 5 days sober. PCP:Dr. Raphael 10/30/18 13:03 Past History - Past Medical History Allergies/Adverse Reactions: Allergies Allergy/AdvReac Type Severity Reaction Status Date / Time Penicillins Allergy Verified 10/30/18 11:29 Home Medications: Ambulatory Orders Nadolol [Corgard -] 20 mg PO DAILY #30 tablet 10/07/15 Escitalopram Oxalate [Lexapro -] 10 mg PO DAILY 11/23/16 Pantoprazole Sodium [Protonix] 40 mg PO DAILY #30 tablet. 09/24/18 Cardiac Disorders: Yes (AAA) COPD: No Disorders: Yes (sludge) HTN: Yes Liver Disease: Yes - Immunization History Immunization Up to Date: Yes - Suicide/Smoking/Psychosocial Hx Smoking History: Never smoked Have you smoked in the past 12 months: No Number of Cigarettes Smoked Daily: 0 Cigars Per Day: 0 Hx Alcohol Use: Yes (DAILY) Drug/Substance Use Hx: No Substance Use Type: Alcohol Review of Systems - Review of Systems Able to Perform ROS?: Yes Comments:: GENERAL/CONSTITUTIONAL:(+)Obese. (+)Chills. No fever. No weakness. HEAD, EYES, EARS, NOSE AND THROAT: No change in vision. No ear pain or discharge. No sore throat. CARDIOVASCULAR: No chest pain or shortness of breath. RESPIRATORY: No cough, wheezing, or hemoptysis. GASTROINTESTINAL: (+)Nausea, vomiting, black diarrhea. No constipation. GENITOURINARY: No dysuria, frequency, or change in urination. MUSCULOSKELETAL: No joint or muscle swelling or pain. No neck or back pain. SKIN: No rash NEUROLOGIC: No headache, vertigo, loss of consciousness, or change in strength/ sensation. ENDOCRINE: No increased thirst. No abnormal weight change. HEMATOLOGIC/LYMPHATIC: No anemia, easy bleeding, or history of blood clots. ALLERGIC/IMMUNOLOGIC: No hives or skin allergy. 10/30/18 13:02 *Physical Exam - Vital Signs Last Vital Signs Temp Pulse Resp BP Pulse Ox 98.2 F 98 H 16 131/73 97 10/30/18 11:26 10/30/18 11:26 10/30/18 11:26 10/30/18 11:26 10/30/18 11:26 - Physical Exam Comments: GENERAL:(+)Obese. Awake, alert, and fully oriented, in no acute distress HEAD: No signs of trauma EYES: PERRLA, EOMI, sclera anicteric, conjunctiva clear ENT: Auricles normal inspection, hearing grossly normal, nares patent, oropharynx clear without exudates. Moist mucosa NECK: Normal ROM, supple, no lymphadenopathy, JVD, or masses LUNGS: Breath sounds equal, clear to auscultation bilaterally. No wheezes, and no crackles HEART: Regular rate and rhythm, normal S1 and S2, no murmurs, rubs or gallops ABDOMEN: (+)Obese. Soft, nontender, normoactive bowel sounds. No guarding, no rebound. No masses EXTREMITIES: Normal range of motion, no edema. No clubbing or cyanosis. No cords, erythema, or tenderness NEUROLOGICAL: (+)Slight tongue fasciculations. Cranial nerves II through XII grossly intact. Normal speech, normal gait SKIN: Warm, Dry, normal turgor, no rashes or lesions noted. Rectal: No stool in rectum. 10/30/18 13:02 ED Treatment Course - LABORATORY CBC & Chemistry Diagram: 10/30/18 12:39 10/30/18 12:39 - ADDITIONAL ORDERS Additional order review: Laboratory Results 10/30/18 10/30/18 12:39 12:29 Sodium 135 L Potassium 3.9 Chloride 101 Carbon Dioxide 25 Anion Gap 8 BUN 7.0 Creatinine 0.8 Est GFR (CKD-EPI)AfAm 121.57 Est GFR (CKD-EPI)NonAf 104.89 Random Glucose 102 Calcium 8.6 Total Bilirubin 7.6 H AST 100 H ALT 25 Alkaline Phosphatase 157 H Total Protein 7.5 Albumin 3.1 L Stool Occult Blood Negative 10/30/18 12:39 RBC 4.05 MCV 87.6 MCHC 33.5 RDW 18.7 H MPV 9.0 Neutrophils % 71.4 Lymphocytes % 18.8 D Monocytes % 8.3 Eosinophils % 0.7 D Basophils % 0.8 - Medications Given in the ED: ED Medications Discontinued Medications Generic Name Dose Route Start Last Admin Trade Name Freq PRN Reason Stop Dose Admin Chlordiazepoxide HCl 25 mg 10/30/18 12:32 10/30/18 12:47 Librium - PO 10/30/18 12:33 25 mg ONCE ONE Administration Medical Decision Making - Medical Decision Making 10/30/18 14:43 pt presents to the ED complaining of a 4 day history of worsening black diarrhea after heavy drinking 5 days ago. No stool in the rectal vault. Patient has a history of very severe UGI bleed with dielfoy lesion in 2016. He has resumed drinking alcohol. Given his concerning history, will admit for observation for serial hgb. *DC/Admit/Observation/Transfer Diagnosis at time of Disposition: Rectal bleeding - Discharge Dispostion Condition at time of disposition: Good Decision to Admit order: Yes - Referrals Referrals: Isa Raphael MD [Primary Care Provider] - - Patient Instructions - Post Discharge Activity
[2018-10-30] MEDS: PANTOPRAZOLE SODIUM 80 MG in SODIUM CHLORIDE 100 ML IVPB SCH (15:21)
--- NOTE | 2018-10-30 16:05 | HP ---
Admitting History and Physical - Admission Chief Complaint: black stools at home History of Present Illness: Patient is a 48 year old male with a significant past medical history of GI bleed (2015). On the 2015 admission, patient was emergency intubated and sedated for coffee ground emesis. His other medical history includes ETOH abuse and dependence, and alcoholic hepatitis. He presents to the emergency department with 4 days of black loose diarrhea, nausea, and vomiting. Patient reports that he has maintained sobriety through AA but last weekend relapsed and "partied to much". He reports drinking over the weekend between Friday and Friday and had many different types of drinks (vodka, beer, mixed drinks). On Friday and Friday he experienced tremors, nausea, and vomiting but did not seek medical attention. On Friday, he began to have multiple episodes of black diarrhea and non bilious vomiting. that continued daily He reports that he had approximately 5 episodes of black stools per day. Patient reports that he was unable to keep food down, but was able to tolerate crackers this morning. His last episode of vomiting/dry heaving was yesterday. He states his last colonoscopy was 1 year ago and last EGD was done 6 months ago at [facility]. He denies any seizures but had intermittent dizziness over the course of the week. He reports compliance with Nodolol and protonix. ED Course notable for: - hmg/hct within normal limits - elevated AST - Libirum prn in the ED - bili 7.6 - platelets 53 History Source: Patient Limitations to Obtaining History: No Limitations - Past Medical History Gastrointestinal: Yes: Esophageal Varices Heme/Onc: Yes: Thrombocytopenia Psych: Yes: Addictions, Anxiety - Smoking History Smoking history: Never smoked Have you smoked in the past 12 months: No Aproximately how many cigarettes per day: 0 - Alcohol/Substance Use Hx Alcohol Use: Yes (DAILY) - Social History Usual Living Arrangement: Yes: Alone ADL: Independent History of Recent Travel: No Home Medications - Allergies Allergies/Adverse Reactions: Allergies Allergy/AdvReac Type Severity Reaction Status Date / Time Penicillins Allergy Verified 10/30/18 11:29 - Home Medications Home Medications: Ambulatory Orders Nadolol [Corgard -] 20 mg PO DAILY #30 tablet 10/07/15 Escitalopram Oxalate [Lexapro -] 10 mg PO DAILY 11/23/16 Pantoprazole Sodium [Protonix] 40 mg PO DAILY #30 tablet. 09/24/18 Review of Systems - Review of Systems Constitutional: reports: Lethargy, Loss of Appetite, Malaise, Weakness Eyes: reports: No Symptoms HENT: reports: No Symptoms Neck: reports: No Symptoms Cardiovascular: reports: No Symptoms Respiratory: reports: No Symptoms Gastrointestinal: reports: Rectal Bleeding Genitourinary: reports: Other Musculoskeletal: reports: Muscle Pain Integumentary: reports: No Symptoms Neurological: reports: Tremors Endocrine: reports: No Symptoms Psychiatric: reports: Anxiety Physical Examination Vital Signs: Vital Signs Temperature 98.2 F 10/30/18 11:26 Pulse Rate 98 H 10/30/18 11:26 Respiratory Rate 16 10/30/18 11:26 Blood Pressure 131/73 10/30/18 11:26 O2 Sat by Pulse Oximetry (%) 97 10/30/18 11:26 Constitutional: Yes: Well Nourished, No Distress, Anxious Eyes: Yes: Sclera Icterus HENT: Yes: WNL Neck: Yes: WNL Cardiovascular: Yes: Regular Rate and Rhythm Respiratory: Yes: Regular, CTA Bilaterally Gastrointestinal: Yes: Normal Bowel Sounds ...Rectal Exam: Yes: Deferred Musculoskeletal: Yes: WNL Extremities: Yes: WNL Integumentary: Yes: Jaundice Neurological: Yes: Alert, Oriented ...Motor Strength: WNL Psychiatric: Yes: Alert, Oriented Labs: CBC, BMP 10/30/18 12:39 10/30/18 12:39 Problem List - Problems (1) Rectal bleeding Assessment/Plan: CBC monitoring, hmg/hct presently stable on protonix drip iron studies, stool culture, stool for occult blood gi consulted clear liquid diet, advance per GI Code(s): K62.5 - HEMORRHAGE OF ANUS AND RECTUM (2) Alcohol withdrawal Assessment/Plan: Ativan PRN low CIWA score. Mild tremors on upper arms noted. given librium in the ED. Code(s): F10.239 - ALCOHOL DEPENDENCE WITH WITHDRAWAL, UNSPECIFIED (3) Thrombocytopenia Assessment/Plan: monitor in the abstinence of alcohol bleeding precautions transfuse if < 20. Code(s): D69.6 - THROMBOCYTOPENIA, UNSPECIFIED (4) Portal hypertension Assessment/Plan: On Nodolol. GI consulted Code(s): K76.6 - PORTAL HYPERTENSION (5) Hyperbilirubinemia Assessment/Plan: elevated bili on admission, + jaundice will order abd ultrasound to further evaluate GI following Code(s): E80.6 - OTHER DISORDERS OF BILIRUBIN METABOLISM (6) Prophylactic measure Assessment/Plan: fen NS @ 100 monitor electrolytes clears prophy SCDS no a/c 2/2 to thrombocytopenia Code(s): Z29.9 - ENCOUNTER FOR PROPHYLACTIC MEASURES, UNSPECIFIED Visit type - Emergency Visit Emergency Visit: Yes ED Registration Date: 10/30/18 Care time: The patient presented to the Emergency Department on the above date and was hospitalized for further evaluation of their emergent condition. - New Patient This patient is new to me today: Yes Date on this admission: 10/31/18 - Critical Care Critical Care patient: No
[2018-10-30] MEDS ORDERED: FOLIC ACID INJECTION - 1 MG, THIAMINE HCL 100 MG, MULTIVIT INJECTION ADULT 10 ML in SOD... IVPB ONE (17:15)
[2018-10-30] MEDS ORDERED: LORazepam 1 MG TABLET PO PRN (17:29)
[2018-10-30 20:08] LABS: BASO % 1.4 % (0-2.0); EOS % 1.7 % (0-4.5); HEMATOCRIT 32.4 % (35.4-49); HEMOGLOBIN 10.6 GM/dL (11.7-16.9); LYMPH % 27.9 % (8-40); MCH 29.1 pg (25.7-33.7); MCHC 32.9 g/dl (32.0-35.9); MEAN CELL VOLUME 88.5 fl (80-96); MEAN PLT VOLUME 9.4 fl (7.5-11.1); MONO % 11.5 % (3.8-10.2); NEUT % 57.5 % (42.8-82.8); PLATELET COUNT 41 K/MM3 (134-434); RBC 3.66 M/mm3 (4.00-5.60); RDW 18.5 % (11.9-15.9); WHITE BLOOD COUNT 2.8 K/mm3 (4.0-10.0)
[2018-10-31] MEDS: PANTOPRAZOLE SODIUM 80 MG in SODIUM CHLORIDE 100 ML IVPB SCH ×3 (00:22→20:35)
--- NOTE | 2018-10-31 10:31 | CON.GI ---
Consult Consult Specialty:: GI Referred by:: Hospitalist service Reason for Consultation:: Melena, alcohol abuse - History of Present Illness Chief Complaint: 48 y.o. 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 No alcohol now x 6 days. No h/o DTs. History of Present Illness: Patient had no melena in ER. Labs show anemia, thrombocytopenia, jaundice: CBC,CMP WBC 2.8 K/mm3 (4.0-10.0) L 10/30/18 19:30 RBC 3.66 M/mm3 (4.00-5.60) L 10/30/18 19:30 Hgb 10.6 GM/dL (11.7-16.9) L 10/30/18 19:30 Hct 32.4 % (35.4-49) L 10/30/18 19:30 MCV 88.5 fl (80-96) 10/30/18 19:30 MCH 29.1 pg (25.7-33.7) 10/30/18 19:30 MCHC 32.9 g/dl (32.0-35.9) 10/30/18 19:30 RDW 18.5 % (11.9-15.9) H 10/30/18 19:30 Plt Count 41 K/MM3 (134-434) L D 10/30/18 19:30 MPV 9.4 fl (7.5-11.1) 10/30/18 19:30 Absolute Neuts (auto) 1.6 K/mm3 (1.5-8.0) 10/30/18 19:30 Neutrophils % 57.5 % (42.8-82.8) 10/30/18 19:30 Lymphocytes % 27.9 % (8-40) D 10/30/18 19:30 Monocytes % 11.5 % (3.8-10.2) H 10/30/18 19:30 Eosinophils % 1.7 % (0-4.5) D 10/30/18 19:30 Basophils % 1.4 % (0-2.0) 10/30/18 19:30 Nucleated RBC % 0 % (0-0) 10/30/18 19:30 Sodium 135 mmol/L (136-145) L 10/30/18 12:39 Potassium 3.9 mmol/L (3.5-5.1) 10/30/18 12:39 Chloride 101 mmol/L (98-107) 10/30/18 12:39 Carbon Dioxide 25 mmol/L (21-32) 10/30/18 12:39 Anion Gap 8 MMOL/L (8-16) 10/30/18 12:39 BUN 7.0 mg/dL (7-18) 10/30/18 12:39 Creatinine 0.8 mg/dL (0.55-1.3) 10/30/18 12:39 Est GFR (CKD-EPI)AfAm 121.57 10/30/18 12:39 Est GFR (CKD-EPI)NonAf 104.89 10/30/18 12:39 Random Glucose 102 mg/dL (74-106) 10/30/18 12:39 Calcium 8.6 mg/dL (8.5-10.1) 10/30/18 12:39 Total Bilirubin 7.6 mg/dL (0.2-1) H 10/30/18 12:39 AST 100 U/L (15-37) H 10/30/18 12:39 ALT 25 U/L (13-61) 10/30/18 12:39 Alkaline Phosphatase 157 U/L (45-117) H 10/30/18 12:39 Total Protein 7.5 g/dl (6.4-8.2) 10/30/18 12:39 Albumin 3.1 g/dl (3.4-5.0) L 10/30/18 12:39 These labs, as abnormal as they are, are not that dissimilar to labs he had on previous admissions. - History Source History Provided By: Patient - Past Medical History Gastrointestinal: Yes: Esophageal Varices Hepatobiliary: Yes: Other (alcoholic hepatitis) Heme/Onc: Yes: Anemia, Thrombocytopenia Psych: Yes: Addictions, Anxiety - Alcohol/Substance Use Hx Alcohol Use: Yes (DAILY) - Smoking History Smoking history: Never smoked Have you smoked in the past 12 months: No Aproximately how many cigarettes per day: 0 - Social History ADL: Independent History of Recent Travel: No Home Medications - Allergies Allergies/Adverse Reactions: Allergies Allergy/AdvReac Type Severity Reaction Status Date / Time Penicillins Allergy Verified 10/30/18 11:29 - Home Medications Home Medications: Ambulatory Orders Nadolol [Corgard -] 20 mg PO DAILY #30 tablet 10/07/15 Escitalopram Oxalate [Lexapro -] 10 mg PO DAILY 11/23/16 Pantoprazole Sodium [Protonix] 40 mg PO DAILY #30 tablet. 09/24/18 Physical Exam-GI Vital Signs: Vital Signs Temperature 98.7 F 10/31/18 09:31 Pulse Rate 88 10/31/18 09:31 Respiratory Rate 20 10/31/18 09:31 Blood Pressure 139/74 10/31/18 09:31 O2 Sat by Pulse Oximetry (%) 94 L 10/31/18 09:00 Labs: CBC, BMP 10/30/18 19:30 10/30/18 12:39 Problem List - Problems (1) Rectal bleeding Code(s): K62.5 - HEMORRHAGE OF ANUS AND RECTUM (2) Thrombocytopenia Code(s): D69.6 - THROMBOCYTOPENIA, UNSPECIFIED (3) Alcoholic hepatitis Code(s): K70.10 - ALCOHOLIC HEPATITIS WITHOUT ASCITES Qualifiers: Ascites presence: with ascites Qualified Code(s): K70.11 - Alcoholic hepatitis with ascites Assessment/Plan Alcoholic hepatitis with thrombocytopenia and possible recent bleeding. His BUN is not elevated, no sign of active bleeding now. I had a long discussion with the patient about his alcoholism and I encouraged him to seek support after discharge with AA or another support system. He might also benefit from medications such as Antabuse and naltrexone to help him maintain sobriety. Currently he shows no signs of active withdrawal. The main concern now is (1) his elevated bilirubin of 7.6 (yesterday) and (2) his progressive thrombocytopenia (platelets 41K yesterday). These labs need to be repeated (ordered for this morning but not reported yet). Cannot discharge patient until it is clear that his bilirubin is improving. Will also obtain INR.
[2018-10-31] MEDS: MULTIVITAMINS (DAILY MVI) TABLET (FP) PO SCH (11:00)
[2018-10-31] MEDS: FOLIC ACID 1 MG TABLET (FP) PO SCH (11:00)
[2018-10-31] MEDS: ESCITALOPRAM OXALATE 10 MG TABLET (FP) PO SCH (11:00)
--- NOTE | 2018-10-31 11:13 | PN ---
Progress Note, Physician Chief Complaint: offers no complaints no BMs overnight History of Present Illness: Patient is a 48 year old male with a significant past medical history of GI bleed (2015). On the 2015 admission, patient was emergency intubated and sedated for coffee ground emesis. His other medical history includes ETOH abuse and dependence, and alcoholic hepatitis. He presents to the emergency department with 4 days of black loose diarrhea, nausea, and vomiting. Patient reports that he has maintained sobriety through AA but last weekend relapsed and "partied to much". He reports drinking over the weekend between Friday and Friday and had many different types of drinks (vodka, beer, mixed drinks). On Friday and Friday he experienced tremors, nausea, and vomiting but did not seek medical attention. On Friday, he began to have multiple episodes of black diarrhea and non bilious vomiting. that continued daily He reports that he had approximately 5 episodes of black stools per day. Patient reports that he was unable to keep food down, but was able to tolerate crackers this morning. His last episode of vomiting/dry heaving was yesterday. He states his last colonoscopy was 1 year ago and last EGD was done 6 months ago at [facility]. He denies any seizures but had intermittent dizziness over the course of the week. He reports compliance with Nodolol and protonix. - Current Medication List Current Medications: Active Medications Escitalopram Oxalate (Lexapro -) 10 mg PO DAILY [facility] Last Admin: 10/31/18 11:00 Dose: 10 mg Folic Acid (Folic Acid -) 1 mg PO DAILY [facility] Last Admin: 10/31/18 11:00 Dose: 1 mg Pantoprazole Sodium 80 mg/ (Sodium Chloride) 100 mls @ 10 mls/hr IVPB Q10H [facility] Last Admin: 10/31/18 11:00 Dose: 10 mls/hr Lorazepam (Ativan -) 1 mg PO Q8H PRN PRN Reason: WITHDRAWAL(CONT SUBST) Multivitamins/Minerals/Vitamin C (Tab-A-Vit -) 1 tab PO DAILY [facility] Last Admin: 10/31/18 11:00 Dose: 1 tab Nadolol (Corgard -) 20 mg PO DAILY [facility] - Objective Vital Signs: Vital Signs Temperature 98.7 F 10/31/18 09:31 Pulse Rate 88 07/27/19 09:31 Respiratory Rate 20 10/31/18 09:31 Blood Pressure 139/74 10/31/18 09:31 O2 Sat by Pulse Oximetry (%) 94 L 10/31/18 09:00 Constitutional: Yes: Well Nourished, No Distress, Calm Eyes: Yes: WNL, Sclera Icterus HENT: Yes: WNL Neck: Yes: Supple Cardiovascular: Yes: WNL, Regular Rate and Rhythm Respiratory: Yes: WNL, Regular, CTA Bilaterally Gastrointestinal: Yes: Abdomen, Obese ...Rectal Exam: Yes: Deferred Genitourinary: Yes: WNL Musculoskeletal: Yes: WNL Extremities: Yes: WNL Edema: No Peripheral Pulses WNL: Yes Integumentary: Yes: Jaundice Neurological: Yes: WNL, Alert, Oriented ...Motor Strength: WNL Psychiatric: Yes: WNL, Alert, Oriented Labs: CBC, BMP 10/30/18 19:30 10/30/18 12:39 Problem List - Problems (1) Rectal bleeding Assessment/Plan: CBC monitoring, hmg/hct presently stable but slightly dropped from admission. on protonix drip iron studies, stool culture, stool for occult blood no rectal bleeding since admission. gi consulted and following Code(s): K62.5 - HEMORRHAGE OF ANUS AND RECTUM (2) Alcohol withdrawal Assessment/Plan: Ativan PRN low CIWA score. Mild tremors on upper arms noted. given librium in the ED. continue ativan prn Code(s): F10.239 - ALCOHOL DEPENDENCE WITH WITHDRAWAL, UNSPECIFIED (3) Thrombocytopenia Assessment/Plan: monitor platelets in the abstinence of alcohol bleeding precautions transfuse if < 20. Code(s): D69.6 - THROMBOCYTOPENIA, UNSPECIFIED (4) Portal hypertension Assessment/Plan: On Nodolol. GI consulted Code(s): K76.6 - PORTAL HYPERTENSION (5) Elevated bilirubin Assessment/Plan: bili 7.6 > 8.5 abdominal u/s ordered Code(s): R17 - UNSPECIFIED JAUNDICE (6) Prophylactic measure Assessment/Plan: fen tolerating PO monitor electrolytes low salt diet prophy SCDS no a/c 2/2 to thrombocytopenia Code(s): Z29.9 - ENCOUNTER FOR PROPHYLACTIC MEASURES, UNSPECIFIED Visit type - Emergency Visit Emergency Visit: Yes ED Registration Date: 10/30/18 Care time: The patient presented to the Emergency Department on the above date and was hospitalized for further evaluation of their emergent condition. - New Patient This patient is new to me today: No - Critical Care Critical Care patient: No - Discharge Referral Referred to [facility] No
[2018-10-31] MEDS: NADOLOL 20 MG TABLET (FP) PO SCH (11:37)
[2018-10-31 11:48] LABS: HEMATOCRIT 34.1 % (35.4-49); HEMOGLOBIN 11.4 GM/dL (11.7-16.9); MCH 29.3 pg (25.7-33.7); MCHC 33.4 g/dl (32.0-35.9); MEAN CELL VOLUME 87.8 fl (80-96); MEAN PLT VOLUME 9.2 fl (7.5-11.1); PLATELET COUNT 46 K/MM3 (134-434); RBC 3.89 M/mm3 (4.00-5.60); RDW 18.4 % (11.9-15.9); WHITE BLOOD COUNT 2.4 K/mm3 (4.0-10.0)
[2018-10-31 12:03] LABS: ALBUMIN 2.8 g/dl (3.4-5.0); BILIRUBIN,TOTAL 8.5 mg/dL (0.2-1); BLOOD UREA NITROGEN 6.7 mg/dL (7-18); CALCIUM 7.9 mg/dL (8.5-10.1); CREATININE 0.7 mg/dL (0.55-1.3); MAGNESIUM 1.6 mg/dL (1.8-2.4); PHOSPHOROUS 2.2 mg/dL (2.5-4.9); POTASSIUM 3.6 mmol/L (3.5-5.1); TOT PROT 6.8 g/dl (6.4-8.2)
[2018-10-31 12:13] LABS: INR 1.79 (0.83-1.09); PROTHROMBIN TIME (PATIENT) 21.3 SEC (9.7-13.0)
[2018-10-31] MEDS ORDERED: MAGNESIUM OXIDE 400 MG TABLET (FP) PO ONE (12:27)
[2018-10-31] MEDS ORDERED: INSULIN (NOVOLOG) ASPART 100 UNITS/ML 10ML VIAL ONE (17:14)
[2018-11-01] MEDS: PANTOPRAZOLE SODIUM 80 MG in SODIUM CHLORIDE 100 ML IVPB SCH (05:48)
[2018-11-01 07:52] LABS: EOS % 2.9 % (0-4.5); HEMATOCRIT 32.1 % (35.4-49); HEMOGLOBIN 10.7 GM/dL (11.7-16.9); LYMPH % 26.5 % (8-40); MCH 29.5 pg (25.7-33.7); MCHC 33.4 g/dl (32.0-35.9); MEAN CELL VOLUME 88.4 fl (80-96); MEAN PLT VOLUME 9.3 fl (7.5-11.1); MONO % 9.7 % (3.8-10.2); NEUT % 59.9 % (42.8-82.8); PLATELET COUNT 48 K/MM3 (134-434); RBC 3.63 M/mm3 (4.00-5.60); RDW 18.6 % (11.9-15.9); WHITE BLOOD COUNT 2.4 K/mm3 (4.0-10.0)
[2018-11-01 08:11] LABS: ALBUMIN 2.4 g/dl (3.4-5.0); BILIRUBIN,DIRECT 2.7 mg/dL (0.0-0.2); BILIRUBIN,TOTAL 6.9 mg/dL (0.2-1)
[2018-11-01] MEDS: FOLIC ACID 1 MG TABLET (FP) PO SCH (09:03)
[2018-11-01] MEDS: NADOLOL 20 MG TABLET (FP) PO SCH (09:03)
[2018-11-01] MEDS: ESCITALOPRAM OXALATE 10 MG TABLET (FP) PO SCH (09:03)
[2018-11-01] MEDS: MULTIVITAMINS (DAILY MVI) TABLET (FP) PO SCH (09:03)
[2018-11-01 09:08] LABS: INR 1.82 (0.83-1.09); PROTHROMBIN TIME (PATIENT) 21.6 SEC (9.7-13.0)
--- NOTE | 2018-11-01 10:09 | PN ---
Progress Note (short form) - Note Progress Note: Pt's INR is markedly elevated: INR, PTT INR 1.82 (0.83-1.09) H 11/01/18 07:05 His routine liver chemistries are improved but bilirubin still very elevated: Hepatic Panel Total Bilirubin 6.9 mg/dL (0.2-1) H 11/01/18 07:05 Direct Bilirubin 2.7 mg/dL (0.0-0.2) H 11/01/18 07:05 AST 73 U/L (15-37) H 11/01/18 07:05 ALT 20 U/L (13-61) 11/01/18 07:05 Alkaline Phosphatase 125 U/L (45-117) H 11/01/18 07:05 Albumin 2.4 g/dl (3.4-5.0) L 11/01/18 07:05 I calculated the Jose Alejandroey discriminant function, a measure of the severity of alcoholic hepatitis, at 51. Values >= 32 are associated with a short-term mortality in the range of 30% (25-40% in different studies), and the general guidance is to put such persons on prednisolone in an attempt to ameliorate the continued liver injury. To begin prednisolone 40 mg/day. Will also change pantoprazole to oral. Problem List - Problems (1) Rectal bleeding Code(s): K62.5 - HEMORRHAGE OF ANUS AND RECTUM (2) Thrombocytopenia Code(s): D69.6 - THROMBOCYTOPENIA, UNSPECIFIED (3) Alcoholic hepatitis Code(s): K70.10 - ALCOHOLIC HEPATITIS WITHOUT ASCITES Qualifiers: Ascites presence: with ascites Qualified Code(s): K70.11 - Alcoholic hepatitis with ascites
--- NOTE | 2018-11-01 10:49 | EKG ---
Test Reason : Blood Pressure : / mmHG Vent. Rate : 091 BPM Atrial Rate : 091 BPM P-R Int : 146 ms QRS Dur : 086 ms QT Int : 396 ms P-R-T Axes : 058 070 032 degrees QTc Int : 487 ms NORMAL SINUS RHYTHM PROLONGED QT ABNORMAL ECG WHEN COMPARED WITH ECG OF 22-NOV-2016 15:41, NO SIGNIFICANT CHANGE WAS FOUND Confirmed by BRIE FERGUSON MD ([id number]) on 11/01/2018 10:49:34 AM Referred By: Confirmed By:BRIE FERGUSON MD
[2018-11-01] MEDS: PANTOPRAZOLE 40 MG TABLET (FP) PO SCH (11:32)
--- NOTE | 2018-11-01 11:38 | PN ---
Progress Note, Physician Chief Complaint: offers no complaints no BMs overnight History of Present Illness: Patient is a 48 year old male with a significant past medical history of GI bleed (2015). On the 2015 admission, patient was emergency intubated and sedated for coffee ground emesis. His other medical history includes ETOH abuse and dependence, and alcoholic hepatitis. He presents to the emergency department with 4 days of black loose diarrhea, nausea, and vomiting. Patient reports that he has maintained sobriety through AA but last weekend relapsed and "partied to much". He reports drinking over the weekend between Friday and Friday and had many different types of drinks (vodka, beer, mixed drinks). On Friday and Friday he experienced tremors, nausea, and vomiting but did not seek medical attention. On Friday, he began to have multiple episodes of black diarrhea and non bilious vomiting. that continued daily He reports that he had approximately 5 episodes of black stools per day. Patient reports that he was unable to keep food down, but was able to tolerate crackers this morning. His last episode of vomiting/dry heaving was yesterday. He states his last colonoscopy was 1 year ago and last EGD was done 6 months ago at [facility]. He denies any seizures but had intermittent dizziness over the course of the week. He reports compliance with Nodolol and protonix. - Current Medication List Current Medications: Active Medications Escitalopram Oxalate (Lexapro -) 10 mg PO DAILY [facility] Last Admin: 11/01/18 09:03 Dose: 10 mg Folic Acid (Folic Acid -) 1 mg PO DAILY [facility] Last Admin: 11/01/18 09:03 Dose: 1 mg Lorazepam (Ativan -) 1 mg PO Q8H PRN PRN Reason: WITHDRAWAL(CONT SUBST) Multivitamins/Minerals/Vitamin C (Tab-A-Vit -) 1 tab PO DAILY [facility] Last Admin: 11/01/18 09:03 Dose: 1 tab Nadolol (Corgard -) 20 mg PO DAILY [facility] Last Admin: 11/01/18 09:03 Dose: 20 mg Pantoprazole Sodium (Protonix -) 40 mg PO DAILY [facility] Prednisolone (Prednisolone Unit Dose Cups) 40 mg PO DAILY [facility] - Objective Vital Signs: Vital Signs Temperature 98.3 F 11/01/18 09:16 Pulse Rate 75 11/01/18 09:16 Respiratory Rate 20 11/01/18 09:16 Blood Pressure 135/72 11/01/18 09:16 O2 Sat by Pulse Oximetry (%) 97 11/01/18 09:00 Constitutional: Yes: Well Nourished, No Distress Eyes: Yes: Sclera Icterus HENT: Yes: WNL, Atraumatic Neck: Yes: WNL Cardiovascular: Yes: Regular Rate and Rhythm Respiratory: Yes: CTA Bilaterally Gastrointestinal: Yes: Abdomen, Obese ...Rectal Exam: Yes: Deferred Edema: No Integumentary: Yes: Jaundice Neurological: Yes: WNL, Alert, Oriented Labs: CBC, BMP 11/01/18 07:05 10/31/18 11:15 INR, PTT INR 1.82 (0.83-1.09) H 11/01/18 07:05 Problem List - Problems (1) Rectal bleeding Assessment/Plan: CBC monitoring, hmg/hct presently stable but slightly dropped from admission. on protonix PO iron studies, stool culture, stool for occult blood no rectal bleeding since admission. gi consulted and following Code(s): K62.5 - HEMORRHAGE OF ANUS AND RECTUM (2) Alcohol withdrawal Assessment/Plan: Ativan PRN low CIWA score. Mild tremors on upper arms noted. continue ativan prn Code(s): F10.239 - ALCOHOL DEPENDENCE WITH WITHDRAWAL, UNSPECIFIED (3) Thrombocytopenia Assessment/Plan: monitor platelets in the abstinence of alcohol bleeding precautions transfuse if < 20. Code(s): D69.6 - THROMBOCYTOPENIA, UNSPECIFIED (4) Portal hypertension Assessment/Plan: On Nodolol. GI consulted Code(s): K76.6 - PORTAL HYPERTENSION (5) Elevated bilirubin Assessment/Plan: bili 7.6 > 8.5 abdominal u/s ordered ctap ordered Code(s): R17 - UNSPECIFIED JAUNDICE (6) Alcoholic hepatitis Assessment/Plan: started on prednisolone 40mg daily Code(s): K70.10 - ALCOHOLIC HEPATITIS WITHOUT ASCITES (7) Prophylactic measure Assessment/Plan: fen tolerating PO monitor electrolytes low salt diet prophy SCDS no a/c 2/2 to thrombocytopenia Code(s): Z29.9 - ENCOUNTER FOR PROPHYLACTIC MEASURES, UNSPECIFIED Visit type - Emergency Visit Emergency Visit: Yes ED Registration Date: 11/01/18 Care time: The patient presented to the Emergency Department on the above date and was hospitalized for further evaluation of their emergent condition. - New Patient This patient is new to me today: No - Critical Care Critical Care patient: No - Discharge Referral Referred to [facility] No
[2018-11-01] MEDS: PrednisoLONE 15 MG/5 ML UNIT-DOSE CUP PO SCH (12:34)
[2018-11-01] MEDS ORDERED: PT OWN MED DRAWER 7, Y5N ONE (18:19)
[2018-11-02 09:22] VITALS: BP 136/74; PULSE 77; TEMP 97.8
[2018-11-02] MEDS: PANTOPRAZOLE 40 MG TABLET (FP) PO SCH (10:41)
[2018-11-02] MEDS: MULTIVITAMINS (DAILY MVI) TABLET (FP) PO SCH (10:41)
[2018-11-02] MEDS: NADOLOL 20 MG TABLET (FP) PO SCH (10:41)
[2018-11-02] MEDS: FOLIC ACID 1 MG TABLET (FP) PO SCH (10:41)
[2018-11-02] MEDS: ESCITALOPRAM OXALATE 10 MG TABLET (FP) PO SCH (10:41)
[2018-11-02] MEDS: PrednisoLONE 15 MG/5 ML UNIT-DOSE CUP PO SCH (10:42)
[2018-11-02 11:04] LABS: BASO % 0.4 % (0-2.0); EOS % 0.3 % (0-4.5); HEMATOCRIT 35.1 % (35.4-49); HEMOGLOBIN 11.6 GM/dL (11.7-16.9); LYMPH % 14.7 % (8-40); MCH 29.4 pg (25.7-33.7); MCHC 32.9 g/dl (32.0-35.9); MEAN CELL VOLUME 89.4 fl (80-96); MEAN PLT VOLUME 9.3 fl (7.5-11.1); MONO % 6.1 % (3.8-10.2); NEUT % 78.5 % (42.8-82.8); PLATELET COUNT 64 K/MM3 (134-434); RBC 3.93 M/mm3 (4.00-5.60); RDW 18.6 % (11.9-15.9); WHITE BLOOD COUNT 6.1 K/mm3 (4.0-10.0)
--- NOTE | 2018-11-02 11:28 | PN.GI ---
GI Progress Note Subjective: Pt seen/examined at bedside, feeling well, denies abdominal pain, n/v. Moving bowels, denies bleeding. Appetite good. Tolerating po. - Objective Vital Signs: Vital Signs Temperature 97.8 F 11/02/18 09:21 Pulse Rate 77 11/02/18 09:21 Respiratory Rate 16 11/02/18 09:21 Blood Pressure 136/74 11/02/18 09:21 O2 Sat by Pulse Oximetry (%) 97 11/01/18 09:00 Constitutional: Well Nourished, No Distress Cardiovascular: Yes: Regular Rate and Rhythm Respiratory: Yes: WNL, Regular, CTA Bilaterally Gastrointestinal Inspection: Yes: WNL ...Palpate: Yes: Other (Abd soft, nt, nd) Labs: CBC, BMP 11/02/18 10:50 INR, PTT INR 1.82 (0.83-1.09) H 11/01/18 07:05 Problem List - Problems (1) Alcoholic hepatitis Assessment/Plan: 48yo male h/o acute on chronic alcoholic liver disease presenting with nausea/ vomiting and diarrhea in setting of heavy etoh use. MDF >32 started on prednisone therapy yesterday, clinically improved. Labs/imaging suggestive of underlying cirrhosis. -Continue prednisolone 40mg daily, would require for 28 days then tapering -PPI daily -Await LFTs today -Strict etoh abstinence advised. Discussion taken place with pt regarding risks on ongoing liver injury and associated complications if continued drinking. -Pt will require close GI follow up - he reports following with GI/liver at [facility] and will plan to resume follow up there Code(s): K70.10 - ALCOHOLIC HEPATITIS WITHOUT ASCITES
[2018-11-02 11:35] LABS: ALBUMIN 2.6 g/dl (3.4-5.0); BILIRUBIN,TOTAL 5.3 mg/dL (0.2-1); BLOOD UREA NITROGEN 6.4 mg/dL (7-18); CALCIUM 8.5 mg/dL (8.5-10.1); CREATININE 0.7 mg/dL (0.55-1.3); MAGNESIUM 1.9 mg/dL (1.8-2.4); POTASSIUM 3.9 mmol/L (3.5-5.1); TOT PROT 6.8 g/dl (6.4-8.2)
--- NOTE | 2018-11-02 16:07 | DS ---
Physical Exam: SUBJECTIVE: Patient seen and examined at the bedside. feels better, in no acute distress. no tremors, no hallucinations. patient willing to try AA and abstain from alcohol. he will see Dr. Marte and his liver specialist at [facility] for a follow up. OBJECTIVE: discharge home with follow up at [facility]. patient to make appointment he is willing to pay out of pocket for the services he has a PCP that he follows with. Vital Signs Period Temp Pulse Resp BP Sys/Madison Pulse Ox Last 24 Hr 97.8 F-98.4 F 66-77 16-74 102-136/62-75 PHYSICAL EXAM GENERAL: The patient is awake, alert, and fully oriented, in no acute distress. HEAD: Normal with no signs of trauma. EYES: sclera anicteric ENT: Ears normal, nares patent, oropharynx clear without exudates, moist mucous membranes. NECK: Trachea midline, full range of motion, supple. LUNGS: Breath sounds equal, clear to auscultation bilaterally, no wheezes HEART: Regular rate and rhythm ABDOMEN: Soft, nontender, nondistended, normoactive bowel sounds, no guarding, no rebound, no hepatosplenomegaly, no masses. EXTREMITIES: no edema. NEUROLOGICAL: Normal speech, steady gait PSYCH: Normal mood, normal affect. SKIN: jaundice. LABS Laboratory Results - last 24 hr 11/02/18 11/02/18 10:50 10:50 WBC 6.1 RBC 3.93 L Hgb 11.6 L Hct 35.1 L MCV 89.4 MCH 29.4 MCHC 32.9 RDW 18.6 H Plt Count 64 L D MPV 9.3 Absolute Neuts (auto) 4.8 Neutrophils % 78.5 D Lymphocytes % 14.7 D Monocytes % 6.1 Eosinophils % 0.3 D Basophils % 0.4 Nucleated RBC % 0 Sodium 137 Potassium 3.9 Chloride 105 Carbon Dioxide 25 Anion Gap 8 BUN 6.4 L Creatinine 0.7 Est GFR (CKD-EPI)AfAm 128.43 Est GFR (CKD-EPI)NonAf 110.81 Random Glucose 186 H Calcium 8.5 Magnesium 1.9 Total Bilirubin 5.3 H AST 59 H ALT 21 Alkaline Phosphatase 141 H Total Protein 6.8 Albumin 2.6 L HOSPITAL COURSE: Date of Admission:11/01/18 Date of Discharge: 11/02/18 Patient is a 48 year old male with a significant past medical history of GI bleed (2015). On the 2015 admission, patient was emergency intubated and sedated for coffee ground emesis. His other medical history includes ETOH abuse and dependence, and alcoholic hepatitis. He presents to the emergency department with 4 days of black loose diarrhea, nausea, and vomiting. Patient reports that he has maintained sobriety through AA but last weekend relapsed and "partied to much". He reports drinking over the weekend between Friday and Friday and had many different types of drinks (vodka, beer, mixed drinks). On Friday and Friday he experienced tremors, nausea, and vomiting but did not seek medical attention. On Friday, he began to have multiple episodes of black diarrhea and non bilious vomiting. He presents to the ED and admitted for rectal bleed. He states his last colonoscopy was 1 year ago and last EGD was done 6 months ago at [facility]. He denies any seizures but had intermittent dizziness over the course of the week. He reports compliance with Nodolol and protonix. Patient evaluated by GI and he is to follow up with his PCP and liver specialist at [facility]. His platelets are improved and his bilirubin is trending down. Minutes to complete discharge: 60 Discharge Summary Reason For Visit: RECTAL HEMORRHAGE Current Active Problems Alcohol withdrawal (Acute) Alcoholic hepatitis (Acute) Elevated bilirubin (Acute) Hyperbilirubinemia (Acute) Prophylactic measure (Acute) Rectal bleeding (Acute) Thrombocytopenia (Acute) Condition: Good - Instructions Diet, Activity, Other Instructions: Mr Atwood: You were admitted for alcoholic hepatitis. We will be sending you home with the following medications: -Continue prednisolone 40mg daily, for 28 more days. Please see your liver specialist to taper off this medication. do not abruptly stop on your own. -Protonix daily - 40mg -Have your liver blood work repeated to assure it remains stable. Please see our PCP within 1 week. -Strict Abstinence from alcohol. absolutely no alcohol. Please consider returning to . -Please see your GI/liver at [facility] within 5-7 days. Thank you for allowing us to care for you. Referrals: Terry Christensen MD [Staff Physician] - Disposition: HOME - Home Medications Comprehensive Discharge Medication List: Ambulatory Orders Nadolol [Corgard -] 20 mg PO DAILY #30 tablet 10/07/15 Escitalopram Oxalate [Lexapro -] 10 mg PO DAILY 11/23/16 Pantoprazole Sodium [Protonix] 40 mg PO DAILY #30 tablet. 09/24/18 Folic Acid - 1 mg PO DAILY #30 tablet 11/02/18 Pantoprazole Sodium [Protonix] 40 mg PO DAILY #30 tablet. 11/02/18 PrednisoLONE [Prednisolone UNIT DOSE CUPS] 40 mg PO DAILY #30 cup 11/02/18 Prednisolone 40 mg PO DAILY #30 dose 11/02/18 Problem List - Problems (1) Rectal bleeding Assessment/Plan: resolved had formed brown BM today. hmg/hct stable. Code(s): K62.5 - HEMORRHAGE OF ANUS AND RECTUM (2) Alcohol withdrawal Assessment/Plan: no signs of w/drawal during hospital stay patient to seek help with AA. Abstaining from ETOH discussed in great detail and he agrees to abstain. Code(s): F10.239 - ALCOHOL DEPENDENCE WITH WITHDRAWAL, UNSPECIFIED (3) Thrombocytopenia Assessment/Plan: improved. patient to repeat labs with PCP Code(s): D69.6 - THROMBOCYTOPENIA, UNSPECIFIED (4) Portal hypertension Assessment/Plan: on nodolol and protonix Code(s): K76.6 - PORTAL HYPERTENSION (5) Elevated bilirubin Assessment/Plan: bilirubin improving. liver specialist at [facility]. Patient to call for appointment. Code(s): R17 - UNSPECIFIED JAUNDICE (6) Alcoholic hepatitis Assessment/Plan: outpatient follow up. Code(s): K70.10 - ALCOHOLIC HEPATITIS WITHOUT ASCITES (7) Prophylactic measure Code(s): Z29.9 - ENCOUNTER FOR PROPHYLACTIC MEASURES, UNSPECIFIED This patient is new to me today: No Emergency Visit: Yes ED Registration Date: 11/01/18 Care time: The patient presented to the Emergency Department on the above date and was hospitalized for further evaluation of their emergent condition. Critical Care patient: No - Discharge Referral Referred to [facility] Med [facility]C.: No
[2018-11-03] MEDS ORDERED: PrednisoLONE 15 MG/5 ML UNIT-DOSE CUP PO SCH (10:00)
== END 2018-11-02 17:27 | disposition home or self-care (01) | DRG 280 ==
LOC: JER 11:21 → JERBED 14:47 → J6S 16:37 → OBSVTOIN 11-01 08:10
PROVIDERS: ADMIT Internal Medicine; ATTEND Nurse Practitioner Family
DX: K70.10 Alcoholic hepatitis without ascites (principal); K62.5 Hemorrhage of anus and rectum; D69.6 Thrombocytopenia, unspecified; K76.6 Portal hypertension; F10.230 Alcohol dependence with withdrawal, uncomplicated; E66.9 Obesity, unspecified; Z68.29 Body mass index [BMI] 29.0-29.9, adult; F41.9 Anxiety disorder, unspecified; E80.6 Other disorders of bilirubin metabolism; D64.9 Anemia, unspecified
CPT/HCPCS: 36415; 74177-TC; 76705-TC; 80053; 80076; 82272; 82728; 83540; 83735; 84100; 85025; 85027; 85610; 86850; 86900; 86901; 87045; 87046; 93005; 93010; 99284-25; G0378; J7030

== ENCOUNTER 2019-02-05 21:32 | Emergency (ER) | payer OTHER ==
[2019-02-05 21:45] VITALS: BP 129/66; PULSE 95; TEMP 98.2; BMI 36.6
--- NOTE | 2019-02-05 21:46 | PDOC ---
Rapid Medical Evaluation Time Seen by Provider: 02/05/19 21:43 Medical Evaluation: Allergies Allergy/AdvReac Type Severity Reaction Status Date / Time Penicillins Allergy Verified 10/30/18 11:29 Vital Signs Temp Pulse Resp BP Pulse Ox 98.2 F 95 H 19 129/66 98 02/05/19 21:41 02/05/19 21:41 02/05/19 21:41 02/05/19 21:41 02/05/19 21:41 02/05/19 21:45 Pt c/o: tripped at 130am landing on face, sustained lac, no loc, no immunosupression, tdap utd Pt on brief exam: noted healed dry lac x 2 to tip of nose Pt ordered for: none Pt to proceed to the ED Discharge Disposition - Diagnosis Nasal laceration - Referrals - Patient Instructions - Post Discharge Activity
--- NOTE | 2019-02-05 22:13 | PDOC ---
History of Present Illness - General Chief Complaint: Injury Stated Complaint: FACE LAC Time Seen by Provider: 02/05/19 21:43 History Source: Patient Exam Limitations: No Limitations - History of Present Illness Initial Comments: 02/05/19 22:13 HISTORY OF PRESENT ILLNESS: This is a 49-year-old male past medical history of hypertension who presents emergency department for evaluation of nasal laceration status post trip and fall. Patient reports that approximately 1:00 this morning he got up to use the restroom tripping over his bedside table falling forward and striking his face on the hardwood floor. He reports he immediately stood up and called his brother who lives upstairs who came down to attend one. Patient denies any loss of consciousness or vomiting. Patient reports he continued to the bathroom and voided prior to his brother getting to the apartment. Denies any urinary incontinence. Patient reports his last tetanus shot was a few months ago during a routine annual checkup. No recent travel or sick contacts. PAST MEDICAL HISTORY: hypertension SURGICAL HISTORY: Denies ALLERGIES: Penicillin REVIEW OF SYSTEMS General/Constitutional: Denies fever or chills. Denies weakness, weight change. HEENT: See HPI Cardiovascular: Denies chest pain or shortness of breath. Respiratory: Denies cough, wheezing, or hemoptysis. Gastrointestinal: Denies nausea, vomiting, diarrhea or constipation. Denies rectal bleeding. Genitourinary: Denies dysuria, frequency, or change in urination. Musculoskeletal: Denies joint or muscle swelling or pain. Denies neck or back pain. Skin and breasts: Denies rash or easy bruising. Neurologic: Denies headache, vertigo, loss of consciousness, or loss of sensation. Psychiatric: Denies depression or anxiety. Endocrine: Denies increased thirst. Denies abnormal weight change. Hematologic/Lymphatic: Denies anemia, easy bleeding, or history of blood clots. Allergic/Immunologic: Denies hives or skin allergy. Denies latex allergy. PHYSICAL EXAM General Appearance: Well-appearing, appropriately dressed. No apparent distress , no intoxication. HEENT: EOMI, PERRLA, normal ENT inspection, normal voice, TMs normal, pharynx normal. No conjunctival pallor. No photophobia, scleral icterus. Laceration present to tip of the nose extending to the left nare. No septal hematomas present. No orbital tenderness noted. Full equal articulation of the mandible noted. No mandibular tenderness. No maxillary tenderness. Neck: Supple. Trachea midline. No tenderness, rigidity, carotid bruit, stridor , lymphadenopathy, or thyromegaly. Respiratory/Chest: Lungs CTAB. No shortness of breath, chest tenderness, respiratory distress, accessory muscle use. No crackles, rales, rhonchi, stridor , wheezing, dullness Cardiovascular: RRR. S1, S2. No JVD, murmur, bradycardia, tachycardia. Vascular Pulses: Dorsalis-Pedis (R): 2+, Dorsalis-Pedis (L): 2+ Gastrointestinal/Abdominal: Normal bowel sounds. Abdomen soft, non-distended. No tenderness or rebound tenderness. No organomegaly, pulsatile mass, guarding, hernia, hepatomegaly, splenomegaly. Lymphatic: No adenopathy, tenderness. Musculoskeletal/Extremities: Normal inspection. FROM of all extremities, normal capillary refill. Pelvis Stable. No CVA tenderness. No tenderness to extremities, pedal edema, swelling, erythema or deformity. Integumentary: Approximate 1 cm superficial linear laceration present to the tip of the nose extending towards the left nare. Laceration is not through and through. Neurologic: layout operator II-XII intact. Fully oriented, alert. Appropriate mood/affect. Motor strength 5/5. No appreciable EOM palsy, facial droop or sensory deficit. Gait steady. Finger-nose testing is normal. 02/05/19 22:16 Past History - Past Medical History Allergies/Adverse Reactions: Allergies Allergy/AdvReac Type Severity Reaction Status Date / Time Penicillins Allergy Verified 10/30/18 11:29 Home Medications: Ambulatory Orders Nadolol [Corgard -] 20 mg PO DAILY #30 tablet 10/07/15 Escitalopram Oxalate [Lexapro -] 10 mg PO DAILY 11/23/16 Pantoprazole Sodium [Protonix] 40 mg PO DAILY #30 tablet. 09/24/18 Folic Acid - 1 mg PO DAILY #30 tablet 11/02/18 Pantoprazole Sodium [Protonix] 40 mg PO DAILY #30 tablet. 11/02/18 PrednisoLONE [Prednisolone UNIT DOSE CUPS] 40 mg PO DAILY #30 cup 11/02/18 Prednisolone 40 mg PO DAILY #30 dose 11/02/18 Anemia: No Asthma: No Cancer: No Cardiac Disorders: Yes (AAA) CVA: No COPD: No CHF: No Dementia: No Diabetes: No Disorders: Yes (sludge) HTN: Yes Hypercholesterolemia: No Liver Disease: Yes Seizures: No Thyroid Disease: No - Surgical History Abdominal Surgery: Yes Appendectomy: No Cardiac Surgery: No Cholecystectomy: No Lung Surgery: No Neurologic Surgery: No Orthopedic Surgery: No - Immunization History Immunization Up to Date: Yes - Psycho Social/Smoking Cessation Hx Smoking History: Never smoked Have you smoked in the past 12 months: No Number of Cigarettes Smoked Daily: 0 Cigars Per Day: 0 Hx Alcohol Use: No Drug/Substance Use Hx: No Substance Use Type: None Hx Substance Use Treatment: No *Physical Exam - Vital Signs Last Vital Signs Temp Pulse Resp BP Pulse Ox 98.2 F 95 H 19 129/66 98 02/05/19 21:41 02/05/19 21:41 02/05/19 21:41 02/05/19 21:41 02/05/19 21:41 Procedures - Consent Consent obtained: Verbal, From Patient - Laceration/Wound Repair Left Anterior Nose Wound Length: to 2.5 cm Wound Explored: clean Wound's Depth, Shape: superficial, linear Irrigated w/ Saline: Yes Betadine Prep: No Wound Debrided: minimal Wound Repaired With: Dermabond Sterile Dressing Applied: Yes Splint Applied: Yes Sling Applied: Yes Progress: 02/05/19 22:13 Patient tolerated well Medical Decision Making - Medical Decision Making 02/05/19 22:11 A/P: 49-year-old male with nasal laceration Approximate 1 cm superficial linear laceration present to the tip of the nose extending to the nare but not through. No nasal tenderness noted No septal hematomas present No orbital tenderness Extraocular movements are intact No loose teeth No oral trauma Full equal articulation of the mandible without difficulty a Tetanus is up-to-date As this is a facial laceration I will perform primary closure as it is been less than 24 hours since injury Dermabond-see procedure note for details Discharge home 02/05/19 22:16 Discharge - Discharge Information Problems reviewed: Yes Clinical Impression/Diagnosis: Nasal laceration Qualifiers: Encounter type: initial encounter Qualified Code(s): S01.21XA - Laceration without foreign body of nose, initial encounter Condition: Stable Disposition: HOME - Admission No - Follow up/Referral - Patient Discharge Instructions Additional Instructions: Rest, no strenuous activity or exercise until glue is dissolved or lifted Wash from the neck down only and avoid hot steamy environment until Dermabond is gone No bathing or swimming until Dermabond is dissolved Avoid peeling away as wound will open Dermabond should be resolved within 3-7 days May use Tylenol or Motrin for pain relief Followup with clerical assigner as needed Return to emergency department for worsening swelling, pain, redness or signs of cellulitis If the wound reopens, may not be reclosed as will be a dirty wound and will need to heal by secondary intention - Post Discharge Activity
== END 2019-02-05 22:14 | disposition home or self-care (01) ==
LOC: JERFT 21:32
PROC: 0HQ1XZZ Repair Face Skin, External Approach (ICD-10-PCS; principal; 2019-02-05)
DX: S01.21XA Laceration without foreign body of nose, initial encounter (principal); W01.198A Fall on same level from slipping, tripping and stumbling with subsequent striking against other object, initial encounter; Y93.01 Activity, walking, marching and hiking; Y92.013 Bedroom of single-family (private) house as the place of occurrence of the external cause; Y99.8 Other external cause status; I10 Essential (primary) hypertension; Z86.79 Personal history of other diseases of the circulatory system; Z87.19 Personal history of other diseases of the digestive system; Z88.0 Allergy status to penicillin
CPT/HCPCS: 99282-25

== ENCOUNTER 2019-05-04 15:51 | Emergency (ER) | payer OTHER ==
--- NOTE | 2019-05-04 16:12 | PDOC ---
Rapid Medical Evaluation Chief Complaint: Ear Problem Time Seen by Provider: 05/04/19 16:11 Medical Evaluation: Allergies Allergy/AdvReac Type Severity Reaction Status Date / Time Penicillins Allergy Verified 05/04/19 16:09 05/04/19 16:11 I have performed a brief in-person evaluation of this patient. The patient presents with a chief complaint of: rt ear pain Pertinent physical exam findings: A&O x 3 in nad I have ordered the following: nothing The patient will proceed to the ED for further evaluation. Discharge Disposition - Diagnosis Otalgia, right ear - Discharge Dispostion Condition at time of disposition: Stable - Referrals - Patient Instructions - Post Discharge Activity
[2019-05-04 16:14] VITALS: BP 141/73; PULSE 88; TEMP 97.6; BMI 33.3
--- NOTE | 2019-05-04 17:39 | PDOC ---
History of Present Illness - General Chief Complaint: Ear Problem Stated Complaint: EAR PROBLEM/LOSS OF BALANCE Time Seen by Provider: 05/04/19 16:11 History Source: Patient Exam Limitations: No Limitations - History of Present Illness Initial Comments: 05/04/19 17:34 49-year-old male with history of GERD and GI bleed due to alcohol abuse presents complaining of decreased hearing and tinnitus of right ear, off- balance sensation, intermittent dizziness x30 days. 3 weeks ago noticed pus on Q-tip after cleaning the right ear. Denies headache, fever, chills, ear pain, sore throat, neck pain or any other symptom. He has not been taking any medications for the symptoms. ROS: GENERAL/CONSTITUTIONAL: No fever, chills, weakness, dizziness HEAD, EYES, EARS, NOSE AND THROAT: Decreased hearing, pus from right ear 3 weeks ago, no changes in vision, No ear pain, No sore throat CARDIOVASCULAR: No chest pain RESPIRATORY: No shortness of breath or cough GASTROINTESTINAL: No pain, nausea, vomiting, diarrhea or constipation GENITOURINARY: No dysuria MUSCULOSKELETAL: No neck or back pain SKIN: No rash NEUROLOGIC: Intermittent dizziness, no headache, loss of consciousness, or loss of sensation PE: GENERAL: well-appearing, NAD HEAD: NCAT EYES: pupils equal, round and reactive to light, sclera anicteric, conjunctiva clear ENT: Right ear canal no erythema, + bulging TM, no perforation noted, no drainage noted, pharynx: no erythema, no exudate, uvula midline NECK: supple, no lymphadenopathy CHEST: nontender RESP: clear, no w/r/r CARDIO: rrr, no m/g/r ABD: +BS, soft, nontender, non distended BACK: no midline spinal ttp, no CVAT EXTREMITIES: Normal range of motion, no edema NEUROLOGICAL: Normal speech, normal gait SKIN: Warm, Dry Is this a multiple visit Asthma Patient?: No Past History - Past Medical History Allergies/Adverse Reactions: Allergies Allergy/AdvReac Type Severity Reaction Status Date / Time Penicillins Allergy Verified 05/04/19 16:09 Home Medications: Ambulatory Orders Nadolol [Corgard -] 20 mg PO DAILY #30 tablet 10/07/15 Escitalopram Oxalate [Lexapro -] 10 mg PO DAILY 11/23/16 Folic Acid - 1 mg PO DAILY #30 tablet 11/02/18 Pantoprazole Sodium [Protonix] 40 mg PO DAILY #30 tablet. 11/02/18 PrednisoLONE [Prednisolone UNIT DOSE CUPS] 40 mg PO DAILY #30 cup 11/02/18 Cefdinir [Omnicef -] 300 mg PO BID #14 capsule 05/04/19 Meclizine HCl [Antivert -] 25 mg PO TID #21 tablet 05/04/19 Anemia: No Asthma: No Cancer: No Cardiac Disorders: Yes (AAA) CVA: No COPD: No CHF: No Dementia: No Diabetes: No Disorders: Yes (sludge) HTN: Yes Hypercholesterolemia: No Liver Disease: Yes Seizures: No Thyroid Disease: No - Surgical History Abdominal Surgery: Yes Appendectomy: No Cardiac Surgery: No Cholecystectomy: No Lung Surgery: No Neurologic Surgery: No Orthopedic Surgery: No - Immunization History Immunization Up to Date: Yes - Psycho Social/Smoking Cessation Hx Smoking History: Never smoked Have you smoked in the past 12 months: No Number of Cigarettes Smoked Daily: 0 Cigars Per Day: 0 Hx Alcohol Use: No Drug/Substance Use Hx: No Substance Use Type: None Hx Substance Use Treatment: No *Physical Exam - Vital Signs Last Vital Signs Temp Pulse Resp BP Pulse Ox 97.6 F 88 16 141/73 98 05/04/19 16:10 05/04/19 16:10 05/04/19 16:10 05/04/19 16:10 05/04/19 16:10 Medical Decision Making - Medical Decision Making 05/04/19 17:38 49-year-old male with history of GERD and GI bleed presents complaining of vertiginous symptoms including tinnitus to right ear, feeling off balance when walking, decreased hearing to right ear, intermittent dizziness for 1 month. Denies pain, fever, chills, headache. Right ear canal with bulging TM, no drainage or erythema noted in canal We will treat with Ceftin ear and meclizine Advised to follow-up with PMD and ENT this week Return precautions discussed Discharge - Discharge Information Problems reviewed: Yes Clinical Impression/Diagnosis: Otalgia, right ear Condition: Stable Disposition: HOME - Admission No - Follow up/Referral - Patient Discharge Instructions Additional Instructions: Take Cefdinir 300 mg twice a day for 7 days and meclizine 25 mg every 8 hours Follow-up with your primary care and ENT this week If you develop headache, vomiting, fever, pain or worsening symptoms return to the ED immediately - Post Discharge Activity
== END 2019-05-04 17:51 | disposition home or self-care (01) ==
LOC: JERFT 15:51
DX: H92.01 Otalgia, right ear (principal); K21.9 Gastro-esophageal reflux disease without esophagitis; Z88.0 Allergy status to penicillin
CPT/HCPCS: 99281-25